=== PATIENT | female | born 1960 | race Caucasian/White ===

== ENCOUNTER 2020-04-07 17:24 | Observation (INO) | payer BC, SELFPAY ==
--- NOTE | ~2020-04-07 | XR_ITS ---
XR chest 1V portable DATE: 04/07/2020 18:09 INDICATION: Midsternal chest pain radiating to back. Chest tightness. TECHNIQUE: Portable upright AP chest on 04/07/2020 at 1802 hours COMPARISON: None FINDINGS: There is discoid atelectasis and/or scarring in both lower lung zones. There is focal infiltrate or atelectasis in the medial right lower lung. Otherwise no pulmonary infil trate or consolidation, pleural effusion or pulmonary vascular congestion or pneumothorax is noted ot herwise. Normal heart size. No hilar or mediastinal enlargement. Degenerative spurring of the thoracic spine consistent with diffuse idiopathic skeletal hyperostosis. Osteopenia. IMPRESSION: Medial right basilar infiltrate and/or atelectasis Bilateral lower lung discoid atelectasis or and/or scarring Reviewed, dictated and finalized at location A.
--- NOTE | 2020-04-07 17:28 | ECG_ITS ---
Measurements Intervals [place] Rate: 79 P: 65 CT: 176 QRS: 56 QRSD: 81 T: 66 QT: 358 QTc: 413 Interpretive Statements SINUS RHYTHM NORMAL ECG Electronically Signed On 04-09-2020 9:55:48 CDT by Kel Marie D.O.
[2020-04-07 17:33] VITALS: BP 183/87; PULSE 72; RESP 16; O2SAT 100
--- NOTE | 2020-04-07 17:53 | ED.CHESTPAIN ---
HPI - Chest Pain General Chief Complaint: Chest Pain Stated Complaint: Chest pain Time Seen by Provider: 04/07/20 17:45 Source: RN notes reviewed History of Present Illness HPI narrative: Patient presents emergency department from home for chest pain. Patient states she is been having intermittent chest pain over the past 1 year. She states that symptoms been progressively getting more severe and she was seen by her PCP and sent for a stress test yesterday. Patient states she has not the stress test at all in the hospital yesterday which did show some ischemia and she had scheduled an appointment with cardiology at [facility]. She states that this evening she was on the couch when she had an episode of pain across her bilateral anterior chest described as a pressure with some associated shortness of breath. Talk to her family at that time and came to emergency department for further evaluation. States that currently the pain is resolved. Denies any fevers or chills abdominal pain nausea vomiting or any other history. Denies any previous cardiac history Related Data Home Medications Medication Instructions Recorded Confirmed albuterol sulfate 2 inh INHALATION Q4H PRN 04/07/20 amlodipine 10 mg PO DAILY 04/07/20 budesonide-formoterol [Symbicort] 2 puff INHALATION Q12H 04/07/20 ipratropium-albuterol 3 ml INHALATION Q4H PRN 04/07/20 spironolactone 25 mg PO DAILY 04/07/20 Allergies Allergy/AdvReac Type Severity Reaction Status Date / Time No Known Allergies Allergy Unverified 12/18/16 10:13 Review of Systems Review of Systems: Narrative: Gen.: Denies fevers or chills ENT: Denies congestion Respiratory: Denies shortness of breath or cough CV: See HPI GI: Denies abdominal pain nausea, emesis or diarrhea Musculoskeletal: Denies back pain or muscle pain Neuro: Denies numbness, tingling, weakness or focal weakness Skin: Denies rash Except as documented, all other systems reviewed and negative FOR[facility]LY [facility] Past Medical History Medical History (Updated 04/07/20 @ 19:26 by Benoit Alvares DO) Asthma Hypertension Social History Social History (Updated 04/07/20 @ 18:34 by Benoit Alvares DO) Smoking status: Never smoker Exam Narrative: Exam Narrative: APPEARANCE: No acute distress, nontoxic, resting in bed EYES: EOMI HEENT: Normocephalic, atraumatic, OMM RESPIRATORY: No respiratory distress Clear to auscultation bilaterally with no rhonchi wheezing or rales. CARDIOVASCULAR: Regular rate and rhythm without murmurs rubs or gallops. ABDOMINAL: Soft, nontender, nondistended, no rebound or guarding MUSCULOSKELETAl: Moves all extremities. No clubbing, cyanosis or edema. NEURO: Awake and alert. Following commands, speech normal, no focal deficits SKIN:: Warm, dry. No rashes lesions or abrasions PSYCHIATRIC: Normal affect/mood, Course Course Emergency Course: Request from records sent all in the hospital for stress test The patient and family in for discussion with cardiology. Requesting [facility] at this time Discussed with Dr. Joshi new presentation work-up. Request admission to her service. Request patient receive single dose of Lovenox Discussed with patient and family results of workup and diagnosis. Discussed need for admission. Patient and family understand and agree to current treatment plan Vital Signs Vital signs: Vital Signs Pulse Rate 72 04/07/20 17:33 Respiratory Rate 16 04/07/20 17:33 Blood Pressure 183/87 H 04/07/20 17:33 Pulse Oximetry 100 04/07/20 17:33 Pulse Rate 72 04/07/20 17:33 Respiratory Rate 16 04/07/20 17:33 Blood Pressure 183/87 H 04/07/20 17:33 Pulse Oximetry 100 04/07/20 17:33 MDM - Chest Pain Lab Data Result diagrams: 04/07/20 17:58 04/07/20 17:58 Labs: Lab Results 04/07/20 04/07/20 04/07/20 Range/Units 17:58 17:58 17:58 WBC 8.0 (4.5-10.0) K/mm3 RBC 4.52 (4.2-5.4) M/mm3 Hgb 13.2
[2020-04-07 18:13] LABS: Basophils Absolute Auto 0.1 K/mm3 (0.0-0.1); Basophils Percent Auto 0.6 % (0.2-1.2); Eosinophils Absolute Auto 0.1 K/mm3 (0-0.3); Eosinophils Percent Auto 1.2 % (0-4.4); Hematocrit 39.9 % (37.0-47.0); Hemoglobin 13.2 g/dL (12.0-15.0); Immature Granulocyte Absolute 0.02 K/mm3 (0.00-0.031); Immature Granulocyte Percent A 0.2 % (0-0.5); Lymphocytes Percent Auto 21.2 % (18.3-44.2); Mean Corpuscular HGB Conc 33.1 g/dl (32-36); Mean Corpuscular Hemoglobin 29.2 pg (26-34); Mean Corpuscular Volume 88.3 fl (80-100); Mean Platelet Volume 10.3 fl (7.4-10.4); Monocytes Absolute Auto 0.7 K/mm3 (0.1-0.6); Monocytes Percent Auto 8.7 % (2.6-8.5); Neutrophils Absolute Auto 5.5 K/mm3 (1.3-6.7); Neutrophils Percent Auto 68.1 % (45.5-73.1); Platelet Count Result 253 k/mm3 (150-375); Red Blood Count 4.52 M/mm3 (4.2-5.4); Red Cell Distribution Width 13.5 % (11.5-14.5)
[2020-04-07 18:24] LABS: Prothrombin Time 13.3 Seconds (11.1-14.7)
[2020-04-07 18:25] LABS: Partial Thromboplastin Time 24.6 SECONDS (22.3-36.8)
[2020-04-07 18:30] LABS: Anion Gap 8 mmol/L (8-16); Blood Urea Nitrogen 18 mg/dL (7-17); Calcium 9.4 mg/dL (8.4-10.2); Carbon Dioxide 28 mmol/L (22-30); Chloride 100 mmol/L (98-107); Estimated CRCL calculation 97 ml/min; Estimated Glomerular Filt Rate > 60; Glucose 111 mg/dL (65-105); Potassium 4.3 mmol/L (3.4-5.0); Sodium 136 mmol/L (137-145)
[2020-04-07 18:41] LABS: Troponin I < 0.012 ng/mL (0.000-0.034)
[2020-04-07] MEDS: ASPIRIN 81 MG CHEWABLE TABLET 324 MG PO (19:01)
[2020-04-07] MEDS: ENOXAPARIN 120 MG/0.8 ML SYRINGE 118 MG SUB-Q (19:36)
[2020-04-07 20:30] VITALS: BP 145/92; PULSE 61; RESP 18; TEMP 35.9; O2SAT 100; BMI 40.9
[2020-04-07 20:34] VITALS: BP 138/95; PULSE 89; RESP 16; TEMP 36.7; O2SAT 96
[2020-04-07 20:47] VITALS: BMI 41.4
--- NOTE | 2020-04-07 20:50 | ADMGEN ---
This patient, Connie Harden, was admitted to IMU Room 210-01. Patient/family oriented to hospital policies and general routines including ID bracelet, bed and alarms, visiting hours, pain management, procedures, bathroom and other care routines, personal items, smoking policy, room service/diet, and visiting hours. Valuables list has been completed. Information on how to activate the Rapid Response Team has been discussed. Patient/Family are encouraged to report perceived risks to care and to ask questions if they do not understand what they are told or what they should do.
[2020-04-07 22:00] VITALS: PULSE 73
[2020-04-07 22:04] LABS: Troponin I < 0.012 ng/mL (0.000-0.034)
[2020-04-08] VITALS (18 sets, daily range): BP systolic 109–135; BP diastolic 54–88; PULSE 56–83; RESP 12–22; TEMP 35.6–36.7; O2SAT 93–100
--- NOTE | 2020-04-08 | ECHO_ITS ---
Patient Info Name: Connie Harden Age: 59 years : 1960 Gender: Female Ht: 66 in Wt: 260 lbs BSA: 2.40 m2 HR: 65 bpm BP: 119 / 65 mmHg Heart Rhythm: Sinus Rhythm Technical Quality: Fair Exam Date: 04/08/2020 2:25 PM Exam Location: [facility] Patient Status: Outpatient Admit Date: 04/07/2020 Staff Ordering Physician: Koffi Baig MD Forex Trader: Cornelio Baxter, BERNARDINO, RT Attending Provider: Nadege Joshi MD Referring Physician: Safia HWANG; Exam Type: CA echo dop color flow w con Study Info Indications R07.9 - Chest pain, unspecified Complete two-dimensional, color flow and Doppler transthoracic echocardiogram is performed with contrast to opacify the left ventricle and to improve the deliniation of the left ventricle endocardial borders. Summary 1. Left ventricular chamber dimension is normal. 2. Left ventricular systolic function is normal, estimated at 65-70%. 3. There is mildly increased left ventricular wall thickness. 4. Left ventricular septal wall motion is normal. 5. The left ventricular diastolic function is normal. 6. Left atrial chamber dimension is mildly enlarged. 7. There is mild mitral valve regurgitation. 8. There is mild tricuspid valve regurgitation. Left Ventricle Left ventricular chamber dimension is normal. Left ventricular systolic function is normal, estimated at 65-70%. There is mildly increased left ventricular wall thickness. Left ventricular septal wall motion is normal. The left ventricular diastolic function is normal. Right Ventricle Right ventricular chamber dimension is normal. Right ventricular systolic function is normal. Left Atria Left atrial chamber dimension is mildly enlarged. Right Atria Right atrial chamber dimension is normal. Atrial Septum Intact interatrial septum visualized by color flow imaging. Aortic Valve The aortic valve is probable trileaflet. There is mild aortic valve sclerosis. There is no aortic valve stenosis. There is trace aortic valve regurgitation. Pulmonic Valve The pulmonic valve is not well visualized. There is no pulmonic valve stenosis. There is trace pulmonic regurgitation. Mitral Valve The mitral valve has normal leaflets. There is no mitral valve stenosis. There is mild mitral valve regurgitation. Tricuspid Valve The tricuspid valve leaflets are normal. There is no significant tricuspid valve stenosis. There is mild tricuspid valve regurgitation. No pulmonary hypertension, estimated pulmonary arterial systolic pressure is 33 mmHg. Pericardium/Pleural The pericardium appears normal. There is no pericardial effusion. Inferior Vena Cava Normal inferior vena cava with >50% collapse upon inspiration consistent with normal right atrial pressure, 5 mmHg. Aorta The aortic root size at the sinus of Valsalva is normal. Left Ventricular Outflow Tract Name Value Normal LVOT Doppler LVOT Peak Gradient 3 mmHg LVOT Mean Gradient 1 mmHg LVOT VTI 18.88 cm LVOT VTI/AV VTI Ratio 0.60 Mitral Valve
[2020-04-08 00:11] LABS: Troponin I < 0.012 ng/mL (0.000-0.034)
[2020-04-08 05:26] LABS: Basophils Absolute Auto 0.1 K/mm3 (0.0-0.1); Eosinophils Absolute Auto 0.1 K/mm3 (0-0.3); Eosinophils Percent Auto 1.8 % (0-4.4); Hematocrit 37.9 % (37.0-47.0); Hemoglobin 12.3 g/dL (12.0-15.0); Immature Granulocyte Absolute 0.01 K/mm3 (0.00-0.031); Immature Granulocyte Percent A 0.2 % (0-0.5); Lymphocytes Absolute Auto 2.06 K/mm3 (0.9-3.2); Lymphocytes Percent Auto 40.5 % (18.3-44.2); Mean Corpuscular HGB Conc 32.5 g/dl (32-36); Mean Corpuscular Hemoglobin 28.8 pg (26-34); Mean Corpuscular Volume 88.8 fl (80-100); Mean Platelet Volume 10.6 fl (7.4-10.4); Monocytes Absolute Auto 0.3 K/mm3 (0.1-0.6); Monocytes Percent Auto 5.7 % (2.6-8.5); Neutrophils Absolute Auto 2.6 K/mm3 (1.3-6.7); Neutrophils Percent Auto 50.8 % (45.5-73.1); Platelet Count Result 243 k/mm3 (150-375); Red Blood Count 4.27 M/mm3 (4.2-5.4); Red Cell Distribution Width 13.3 % (11.5-14.5); White Blood Count 5.1 K/mm3 (4.5-10.0)
[2020-04-08 05:38] LABS: Anion Gap 6 mmol/L (8-16); Blood Urea Nitrogen 15 mg/dL (7-17); Calcium 8.9 mg/dL (8.4-10.2); Carbon Dioxide 30 mmol/L (22-30); Chloride 101 mmol/L (98-107); Estimated CRCL calculation 98 ml/min; Estimated Glomerular Filt Rate > 60; Glucose 97 mg/dL (65-105); Potassium 3.9 mmol/L (3.4-5.0); Sodium 137 mmol/L (137-145)
--- NOTE | 2020-04-08 09:33 | PM.IMHP ---
H&P: HPI History of Present Illness Date/Time: 04/08/20 09:33 Chief complaint: Unstable angina Narrative: Date of service 04/08/2020 Connie Harden is a 59 year old female has been having chest pain for years. She describes as a squeezing and tightness that used to occur a couple times per year but recently has become more often, more severe and last longer. And now occurs every couple of days to every couple of weeks. It usually is nonexertional. It will last for minutes to hours. Sometimes she takes aspirin or Advil and her symptoms go away. She does have some occasional palpitations but not necessarily associated at the same time period her discomfort does not radiate into her arm back neck or jaw. She does not become short of breath nausea or diaphoretic. Yesterday she had a dagger like sensation that went through the center of her chest and into her back. This was different than her previous chest pain that she a 4 mention described. She has told her primary care physician Dr. Bowens this in the past and has had EKGs performed which have been normal. Recently she described chest pain again and so a stress test was performed on 04/06/2020 at [facility] which was abnormal for a 1.[address] segment depressions inferiorly. There was no exercise-induced chest pain however. Blood pressure is noted to be significantly elevated at peak exercise at 231/85. Regardless, given her chest pain yesterday and with the knowledge of an abnormal stress test, she came to hospital yesterday for further workup and evaluation. Patient has had negative troponins x3 and her EKG is completely normal. She feels okay at this point but is quite anxious. She otherwise denies any shortness of breath, syncope, presyncope, paroxysmal nocturnal dyspnea, orthopnea, edema Review of Systems Review of Systems: All systems reviewed & are unremarkable except as noted in HPI and below Constitutional: Constitutional: Denies weakness Eyes: Eyes: Denies blurry vision ENT: Denies epistaxis Cardiovascular: Cardiovascular: Reports chest pain Respiratory: Respiratory: Reports dyspnea Gastrointestinal: Gastrointestinal: Denies abdominal pain Genitourinary: Genitourinary: Denies flank pain Musculoskeletal: Musculoskeletal: Denies neck pain Integumentary/Breasts: Skin/Breast: Denies dry skin Neurologic: Denies headache(s) Psychiatric: Psychiatric: Reports anxiety Endocrine: Endocrine: Denies flushing Hematologic/Lymphatic: Hematologic/Lymphatic: Denies easy bleeding Allergic/Immunologic: Allergic/Immunologic: Denies lip swelling PMFSH Past Medical History Medical History Asthma Hypertension Family History Family History Father Diabetes mellitus COPD (chronic obstructive pulmonary disease) Grandparent Cerebrovascular accident Mother Pulmonary emboli Social History Social History Smoking status: Never smoker Second hand tobacco smoke exposure: Yes Alcohol intake: never Substance use: never Gender identity (if verbalized by the patient): Female Spiritual care concerns: No Meds Home Medications and Allergies Home Medications Medication Instructions Recorded Confirmed Type albuterol sulfate 2 inh INHALATION Q4H PRN 04/07/20 04/07/20 History amlodipine 10 mg PO DAILY 04/07/20 04/07/20 History budesonide-formoterol [Symbicort] 2 puff INHALATION Q12H 04/07/20 04/07/20 History ipratropium-albuterol 3 ml INHALATION Q4H PRN 04/07/20 04/07/20 History spironolactone 25 mg PO DAILY 04/07/20 04/07/20 History Allergies Allergy/AdvReac Type Severity Reaction Status Date / Time No Known Allergies Allergy Unverified 12/18/16 10:13 Vital Signs Vital Signs - 24 hr 04/07/20 17:33 04/07/20 20:30 04/07/20 20:34 Temperature
[2020-04-08] MEDS: amLODIPine BESYLATE 5 MG TABLET 10 MG PO (10:38)
[2020-04-08] MEDS: ASPIRIN 81 MG ENTERIC TABLET PO (10:39)
--- NOTE | 2020-04-08 10:45 | WPDMODSED ---
Moderate Sedation Note-Pt Data Patient Data Allergies Allergy/AdvReac Type Severity Reaction Status Date / Time No Known Allergies Allergy Unverified 12/18/16 10:13 Home Medications Medication Instructions Recorded Confirmed Type albuterol sulfate 2 inh INHALATION Q4H PRN 04/07/20 04/07/20 History amlodipine 10 mg PO DAILY 04/07/20 04/07/20 History budesonide-formoterol [Symbicort] 2 puff INHALATION Q12H 04/07/20 04/07/20 History ipratropium-albuterol 3 ml INHALATION Q4H PRN 04/07/20 04/07/20 History spironolactone 25 mg PO DAILY 04/07/20 04/07/20 History Current Medications: Active Medications Amlodipine Besylate (Norvasc) 10 mg PO [facility] Last Admin: 04/08/20 10:38 Dose: 10 mg Documented by: Aspirin (Aspirin Ec) 81 mg PO [facility] Last Admin: 04/08/20 10:39 Dose: 81 mg Documented by: Sedation/Anesthesia: No previous sedation/anesthesia problems (including family history). [facility] Past Medical History Medical History (Updated 04/08/20 @ 09:39 by Koffi Baig MD) Asthma Hypertension Morbid obesity Family History Family History Father Diabetes mellitus COPD (chronic obstructive pulmonary disease) Grandparent Cerebrovascular accident Mother Pulmonary emboli Social History Social History Smoking status: Never smoker Second hand tobacco smoke exposure: Yes Alcohol intake: never Substance use: never Gender identity (if verbalized by the patient): Female Spiritual care concerns: No Mod Sed Physical Exam Physical Exam Pre Procedural Exam: Normal: Appearance, Eyes, Ears, Nose, Neck, Throat, Airway, Lungs, Heart Size, Heart Rate, Heart Rhythm, Neuro Exam, Abdomen, Liver, Kidneys, Spleen, Breasts, Genitalia, Extremities and Skin Hours since solid foods: 8 Hours since liquid intake: 8 Internal Medicine - PN: Obj Da Vital Signs Vital Signs: Vital Signs - 24 hr 04/07/20 17:33 04/07/20 20:30 04/07/20 20:34 Temperature 35.9 C L 36.7 C Pulse Rate 72 61 89 Respiratory Rate 16 18 16 Blood Pressure 183/87 H 145/92 H 138/95 H Pulse Oximetry 100 100 96 04/07/20 22:00 04/08/20 00:00 04/08/20 00:13 Temperature 35.7 C L Pulse Rate 73 61 60 Respiratory Rate 20 Blood Pressure 123/63 Pulse Oximetry 96 04/08/20 02:00 04/08/20 04:00 04/08/20 04:20 Temperature 35.6 C L Pulse Rate 56 L 64 67 Respiratory Rate 20 Blood Pressure 135/75 Pulse Oximetry 99 04/08/20 06:00 04/08/20 08:00 04/08/20 10:00 Temperature 36.2 C L Pulse Rate 59 L 66 64 Respiratory Rate 12 Blood Pressure 119/65 Pulse Oximetry 98 Intake/Output Intake/Output: Intake & Output 04/05/20 04/06/20 04/07/20 04/08/20 23:59 23:59 23:59 23:59 Intake Total 240 800 Output Total 450 Balance 240 350 Meds/Results Medications: Active Medications Generic Name Dose Route Start Last Admin Trade Name Freq PRN Reason Stop Dose Admin Amlodipine Besylate 10 mg 04/08/20 09:45 04/08/20 10:38 Norvasc PO 10 mg QAM ALEX Administration Aspirin 81 mg 04/08/20 09:45 04/08/20 10:39 Aspirin Ec PO 81 mg QAM ALEX Administration Radiology Results: ITS Impressions Chest X-Ray 04/07/20 18:14 IMPRESSION: Medial right basilar infiltrate and/or atelectasis Bilateral lower lung discoid atelectasis or and/or scarring Labs CBC & Chem 7: 04/08/20 04:43 04/08/20 04:43 Labs: Laboratory Results - last 24 hr 04/07/20 04/07/20 04/07/20 17:58 17:58 17:58 WBC 8.0 RBC 4.52 Hgb 13.2 Hct 39.9 MCV 88.3 MCH 29.2 MCHC 33.1 RDW 13.5 Plt Count 253 MPV 10.3 Immature Gran % (Auto) 0.2 Neut % (Auto) 68.1 Lymph % (Auto) 21.2 Louisa % (Auto) 8.7 H Eos % (Auto) 1.2 Baso % (Auto) 0.6 Lymph # (Auto) 1.70 Louisa # (Auto) 0.7 H Eos # (Auto) 0.1 Baso # (Auto) 0.1
--- NOTE | 2020-04-08 10:46 | WPDHPUPDATE1 ---
History and Physical Update Update Date/Time: 04/08/20 10:46 History and Physical has been reviewed, including an updated exam of the patient. There are NO changes in the patient's condition. Risks, benefits, and alternatives have been discussed and questions answered. Patient agrees to proceed with procedure.
--- NOTE | 2020-04-08 10:47 | P.PCNCC_ITS ---
Cardiac Cath Procedure Note Date of procedure:: 04/08/20 Performing physician:: Klarissa Berman MD date of service 04/08/2020. Indication:: chest pain Brief clinical history:: 59 female past history of hypertension who has been experiencing chest pain. Stress test recently EKG portion shows ST depression inferior laterally. The blood pressure was elevated at peak exercise 230/120. She comes back to the hospital with chest pain and therefore we will cath the stated to exclude CAD. Procedure Procedure performed:: 1-Moderate sedation that started at 11: 15 am and ended at 11:35 am with total duration of 20 minutes using mg of Versed and mg fentanyl. The registered nurse was Bruce Tay. 2-Selective left and right coronary angiogram. 3-Left heart catheterization with measurement of LVEDP and measurement of gradient across aortic valve. 4- LV angiogram. 4-Right common femoral arterial angiogram. 5-Deployment of 6 Armenian Angio-Seal. Sedation/Medication given:: Moderate sedation. Access site:: Right common femoral artery. Estimated blood loss:: 10cc Procedure note:: After informed consent patient was brought in to prestressed concrete laborer with the was draped and prepped in usual manner. Moderate sedation was given and the right groin was infiltrated using 1% lidocaine. Five Armenian sheath was obtained using micropuncture needle and the modified Seldinger technique. Selective left coronary angiogram was done using JL4 catheter with the tip of the catheter placed in the left main coronary artery. Selective right coronary angiogram was done using JR4 catheter with the tip of the catheter placed to the right coronary artery. After that 5 Armenian pigtail catheter was advanced across the aortic valve into the left ventricle with measurement of LVEDP and measurement of gradient across aortic valve. Right common femoral arterial angiogram was done. Findings:: 1- left coronary artery is a large artery that divides into large LAD, large circumflex artery. Left main is free of disease. 2- left anterior descending artery is a large artery that runs and wraps around the apex. That is free of disease. The mid segment large diagonal branch that is free of disease. 3- left circumflex artery is a large artery Free of disease. After takes off from the left main gives rise to a medium size OM 1 branch that is free of disease and distally om 2 branch that is free of disease 4- right coronary artery is large artery and free of disease. It is dominant. 5- LVEDP was 10 mmhg and no gradient across aortic valve. 6- LV angiogram shows normal LV systolic function, estimated ejection fraction 65%, normal ascending aorta. 6- opening arterial pressure was 121/80and closing pressure was 110/70. 7- right femoral artery angiogram shows no significant disease in the right common femoral artery. Conclusion:: No CAD. false-positive stress test. Assessment and Plan Additional Plan continue aggressive risk factor modification for CAD
[2020-04-08 12:19] LABS: Cholesterol 146 mg/dL (0-200); HDL Direct 36 mg/dL; Triglycerides 113 mg/dL (<150)
--- NOTE | 2020-04-08 12:27 | SUR.PHASEII ---
Patient arrived into Phase 2 in [facility] room 4 at 1145. VSS. Groin soft and non tender, dressing clean, dry, and intact. Patient updated on plan of care and verbalizes understanding. Will continue to monitor.
[2020-04-08 12:30] LABS: LDL Cholesterol Direct 95 mg/dL
[2020-04-08] MEDS: SODIUM CHLORIDE 0.9% IV 1,000 ML 125 ML IV CONT (13:07)
[2020-04-08] MEDS: PERFLUTREN LIPID MICROSPHERES 1.5 ML VIAL DILUTED TO 10 ML TOTAL VOLUME IV PUSH (15:00)
--- NOTE | 2020-04-09 10:55 | PM.DS ---
DS: Admitting Diagnosis Admitting Diagnosis Admitting Diagnosis: Unstable angina DS: Discharge Diagnosis Discharge Diagnosis (1) Abnormal stress test: Code(s): R94.39 - Abnormal result of other cardiovascular function study Status: Acute Assessment and Plan: Patient comes in with chest pain and underwent stress test that was abnormal stress test. However cardiac catheterization did not show significant obstructive CAD DS: Summary Time Spent with Patient Time attestation: Total time spent providing and/or coordinating discharge services:25 Exam Const: General: cooperative, comfortable, no acute distress, alert and awake Nutritional Appearance: well nourished Orientation/consciousness: patient oriented x3 HENMT: Head: normal to inspection, normocephalic and atraumatic Ears: hearing grossly normal bilaterally General nose exam: Normal external nose present, Normal nares present and no nasal discharge noted Face and sinus: normal facial exam and no erythema Mouth: No drooling and No restricted motion Throat: uvula midline Eyes: General: appearance normal, both eyes and all related structures Alignment and Position: position normal Conjunctivae: conjunctivae normal Sclera: sclerae normal Direct Ophthalmoscopy: No photophobia Neck: Neck: normal visual inspection and no JVD Thyroid: thyroid normal Carotids: no bruits Lymphatic: lymphedema not noted Chest: Chest palpation & inspection: normal inspection of the chest and no tenderness Resp: Effort & Inspection: normal respiratory effort and no nasal flaring Auscultation: clear to auscultation bilaterally, no crackles, no rales and no wheezes Cardio: Jugular venous distension: no JVD Rate: regular rate Rhythm: regular rhythm Heart sounds: S1 normal heart sound present, S2 normal heart sound present, no gallops, no murmurs and no rubs GI: Inspection: non-distended GI Palp: No abdominal tenderness and No Soft to palpation Auscultation: normal bowel sounds Rectal Exam: deferred : General: No no CVA tenderness Back/Spine/Pelvis: Back: No no CVA tenderness Cervical Spine: cervical ROM normal Skin: General skin exam: normal color and rashes and/or lesions noted Neuro: General: patient oriented x3 Cranial nerves: No CN's II-XII intact bilaterally Speech: normal speech Motor exam (neuro): no tremors Extrem: General: normal to inspection and pedal edema present Psych: Appearance: grossly normal and well kempt Speech and movement: Normal speech and movement present Affect: normal affect Discharge Plan Discharge Attending physician on discharge: Koffi Baig Consulting providers: Klarissa Berman ; Koffi Baig ; Kel Marie ; Joe Loaiza Discharging Clinician: Koffi Baig Anticipated Discharge Date/Time: 04/08/20 17:00 Patient Disposition: Home, Self-Care Activity: other - see discharge instructions Diet: heart healthy Wound Care Instructions: other - see discharge instructions Discharge Instructions: ACTIVITY: No driving for 24 hours. No lifting, pushing or pulling more than 10 pounds for 1 week. No strenuous exercise or activity for 1 week. May shower but no tub baths or swimming pool for 1 week. Avoid commercial hot tubs. They are too hot. May return to work on Monday, April 13, 2020 maintaining the above lifting restrictions until April FOLLOW-UP: Follow-up with Primary Care Provider 1-2 weeks. Take a copy of the cardiac catheterization report to your Primary Care Provider. WOUND CARE: May remove gauze dressing tomorrow and place Band aid over site. Remove Band aid on Sunday and leave site open to air. Observe for redness,swelling, drainage or bleeding. Wash gently and pat dry when showering. Stand Alone Forms: General Discharge Information, Work/School Release IP Follow-up/Referrals: Kwan,Donald Amador MD [Primary Ca
== END 2020-04-08 17:00 | disposition home or self-care (01) ==
LOC: ANHED 18:35 → ANHIMU 19:54
PROVIDERS: Internal Medicine Cardiovascular Disease; Admitting Provider Internal Medicine Cardiovascular Disease; Emergency Provider Emergency Medicine; PCP Internal Medicine; Visit Provider Internal Medicine Cardiovascular Disease
PROC: 4A023N7 Measurement of Cardiac Sampling and Pressure, Left Heart, Percutaneous Approach (ICD-10-PCS; CPT 93452; principal; 2020-04-08 11:30)
DX: R07.89 Other chest pain (principal); I10 Essential (primary) hypertension; J45.909 Unspecified asthma, uncomplicated; R94.39 Abnormal result of other cardiovascular function study; E66.01 Morbid (severe) obesity due to excess calories; Z68.41 Body mass index [BMI] 40.0-44.9, adult
CPT/HCPCS: 36415; 71045; 80048; 80061; 84484; 85025; 85610; 85730; 93005; 93458; 96361; 96372; 96374; 99285; A9270; C1760; C1887; C1894; C8929; G0269; G0378; J1644; J1650; J2250; J3010; J7030; J7040; Q9957

== ENCOUNTER 2023-02-05 12:49 | Outpatient (CLI) | payer BC, SELFPAY ==
[2023-02-05 13:47] LABS: Anion Gap 6 mmol/L (8-16); Blood Urea Nitrogen 15 mg/dL (7-17); Calcium 9.4 mg/dL (8.4-10.2); Carbon Dioxide 31 mmol/L (22-30); Chloride 101 mmol/L (98-107); Estimated Glomerular Filt Rate > 60; Glucose 102 mg/dL (65-110); Potassium 4.1 mmol/L (3.4-5.0); Sodium 138 mmol/L (137-145)
== END 2023-02-05 12:50 | disposition home or self-care (01) ==
PROVIDERS: Anesthesiology; PCP Internal Medicine; Visit Provider Podiatrist Foot & Ankle Surgery
DX: Z79.899 Other long term (current) drug therapy (principal); Z01.818 Encounter for other preprocedural examination
CPT/HCPCS: 36415; 80048

== ENCOUNTER 2023-02-09 01:04 | Day surgery (SDC) | payer BC, SELFPAY ==
[2023-02-01 12:00] VITALS: BMI 44.8
--- NOTE | 2023-02-01 12:05 | PC.NURSE ---
Report to the Outpatient Waiting Room, entrance under the green pavilion located off [facility], at time 9:00 on date 02/09/23. Planned Procedure Time: 11:00. Time changes happen often and if your time is changed the preop area will call you the afternoon before. - You and your visitor will be asked to self-screen and do not enter if you have any COVID symptoms. - A mask is optional within the hospital at this time. Patients may have clear liquids (water, carbonated beverages, clear teas, apple juice) until 3 hours prior to surgery (8:00) with a maximum of 20 ounces. - No food from midnight until time of surgery Take the following medications with a SIP of water the morning of surgery: INHALERS, AMLODIPINE DO NOT STOP ANY OF YOUR OTHER PRESCRIPTION MEDICATIONS PRIOR TO SURGERY ?EXCEPT THE FOLLOWING Medications to discontinue per physician: N/A Date to take last dose: N/A Please no make-up, nail turkish, hairspray, perfume, deodorant, or body powder the day of surgery. No jewelry (including any body piercings) or valuables the day of surgery, leave them at home. Please take a shower or bath the night before, or the morning of, surgery with an antibacterial soap. Wear comfortable, loose fitting clothing. - Jewelry must be removed prior to entering the operating room. Rings and piercings that are not removed may be cut off. - The hospital will not accept responsibility for valuables. - Please leave all valuables, including medications, at home the day of surgery. If you are going home after surgery, a licensed concrete mixing truck driver must drive you home. - NO public transportation without another adult if you receive anesthesia. - We recommend that an adult stay with you for 24 hours following discharge. - We also recommend that you do not drive, make important decision, drink alcoholic beverages, or take any drugs that were not prescribed by your health care provider for at least 24 hours after your discharge time. Follow any additional instructions given to you from your surgeon. If you or anyone in your household have experienced Covid symptoms in the past week, please notify your surgeon or the nurse liaison at the phone number below for possible testing. Telephone instructions given to DELMY WHEATLEY and asked if any additional questions and then verbalized understanding. Patient advised to call surgeon office or pre surgery nurse liaison [phone] if any additional questions.
--- NOTE | 2023-02-08 12:55 | P.PNAN_ITS ---
Anes - Initial Pre Proc Eval Procedure: Operation Date: 02/09/23 11:00 Proposed Procedures p Exostectomy Left Lateral Mid Foot - Raymundo Zhu JR, MD Date/Time: 02/08/23 12:55 Surgeon: Raymundo Zhu JR, MD Pre Op Diagnosis: Exostosis Left Foot Patient Data Age: 62 Gender: F Height: 1.68 m Weight: 126 kg Allergies Allergy/AdvReac Type Severity Reaction Status Date / Time No Known Allergies Allergy Verified 02/09/23 09:14 Home Medications Medication Instructions Recorded Confirmed Type albuterol sulfate 90 mcg/actuation 2 inh inhalation Q4H PRN Shortness 04/07/20 02/09/23 History breath activated powder inhaler Of Breath amlodipine 10 mg tablet 10 mg PO DAILY 04/07/20 02/09/23 History budesonide-formoterol HFA 160 2 puff inhalation Q12H 04/07/20 02/09/23 History mcg-4.5 mcg/actuation aerosol inhaler (Symbicort) ipratropium 0.5 mg-albuterol 3 mg 3 ml inhalation Q4H PRN Shortness 04/07/20 02/01/23 History (2.5 mg base)/3 mL nebulization Of Breath soln spironolactone 25 mg tablet 25 mg PO DAILY 04/07/20 02/09/23 History Patient hx anesthesia problems: none Family hx anesthesia problems: none Results Review: All pre-operative results and documents have been reviewed as part of the pre- operative evaluation. FOR[facility]LY [facility] Past Medical History Medical History (Updated 04/27/20 @ 16:09 by Kira Will) Asthma Hypertension Morbid obesity Family History Family History Father Diabetes mellitus COPD (chronic obstructive pulmonary disease) Grandparent Cerebrovascular accident Mother Pulmonary emboli Social History Social History (Updated 04/27/20 @ 16:11 by Bela Roman RN) Smoking status: Never smoker Second hand tobacco smoke exposure: Yes Alcohol intake: current Alcohol use details: RARE Substance use: never Substance use type: does not use Living arrangements: with family Gender identity (if verbalized by the patient): Female Spiritual care concerns: No Anes - Eval Final PreProcedure Day of Procedure 02/08/23 12:55 Patient weight: morbidly obese Heart: regular rate and rhythm Lungs: clear to auscultation and normal air movement Airway: Mallampati scale class II Neurological: alert and oriented Last oral intake: >/= 8 hours ASA classification: III Emergent: no Anesthetic plan: proceed Anesthesia type and monitoring: general GIVS and LMA Results Review: All pre-operative results and documents have been reviewed as part of the pre- operative evaluation. Informed Consent: The patient's anesthetic plan and its attendant risks and benefits were discussed with the patient/family/POA. Questions were solicited and answers provided to the satisfaction of the patient/family/POA.
--- NOTE | ~2023-02-09 | XR_ITS ---
EXAMINATION: XR surgery orthopedic DATE: 02/09/2023 12:04 INDICATION: Left foot surgery TECHNIQUE: 2 fluoroscopic images of the left fore and midfoot were obtained during procedure performe d by Dr. Zhu. Radiologist was not present for the imaging or procedure. The amount of fluoroscop y time used during this procedure was 0.1 minutes. COMPARISON: None. FINDINGS: Alignment of the visualized bones appears normal. No fracture. Dorsal osteophytes at the tarsal metat arsal joints. IMPRESSION: 1. Possible utilized during orthopedic procedure. See procedure note for further detail. Reviewed, dictated and finalized at location B. IMPRESSION: 1. Possible utilized during orthopedic procedure. See procedure note for furthe r detail.
--- NOTE | 2023-02-09 07:19 | WPDHPUPDATE1 ---
History and Physical Update Update Date/Time: 02/09/23 07:19 History and Physical has been reviewed, including an updated exam of the patient. There are NO changes in the patient's condition. Risks, benefits, and alternatives have been discussed and questions answered. Patient agrees to proceed with procedure.
[2023-02-09 09:08] VITALS: BP 127/76; PULSE 80; RESP 20; TEMP 36.1; O2SAT 99
[2023-02-09] MEDS: LACTATED RINGERS 1,000 ML 30 ML IV CONT (09:50)
[2023-02-09] MEDS: ceFAZolin 3 GM/D5W 100 ML 100 ML IVPB (11:32)
[2023-02-09] MEDS: LIDOCAINE HCL 2% LOCAL INJ 20 ML VIAL 10 ML INFILTRATE (11:51)
[2023-02-09 12:07] VITALS: BP 114/62; PULSE 84; RESP 12; O2SAT 96
--- NOTE | 2023-02-09 12:31 | W.PM.PROC2 ---
Procedure Note - Detailed Date of Procedure 02/09/23 Pre-op Diagnosis Exostosis Left Foot Post-op Diagnosis Same Procedure Performed Exostectomy left lateral midfoot Surgeon Raymundo Zhu JR, DPM Anesthesia MAC and Local Indications Painful bone spur left foot Description of Procedure PROCEDURE IN DETAIL: Under mild sedation, the patient was brought into the operating room, placed on the operating table in slight lateral position with a martinez bag. A pneumatic ankle tourniquet was placed about the patient's ankle. Following IV sedation a local anesthetic block was obtained about the foot and ankle utilizing 20 cc of a 1:1 of 2% Lidocaine plain and 0.5% Marcaine plain. The foot was then scrubbed, prepped, and draped in the usual aseptic manner. An Esmarch bandage was then used to exsanguinate the patient's foot and the pneumatic ankle tourniquet was then inflated. Surgery began in the following manner: Attention was directed to the lateral aspect of the midfoot overlying the fourth and fifth metatarsal cuboid joint. The incision was made starting at the cuboid and extending to the base of the 4th and 5th metatarsals . The incision was continued deep down through the subcutaneous tissues using sharp and blunt dissection. All bleeders were cauterized as necessary. At this point, the dissection was continued down to the periosteal layer where the periosteum was reflected medially and laterally exposing a large osteophyte. I used an osteotome and mallet to resect the large osteophyte and used a guardado rasp to smooth any rough edges., I did protect the neurovascular structures. The operative site was flushed with copious amount of sterile saline. Finally, the subcutaneous structures were reapproximated with 3-0 Vicryl. Next, the skin was reapproximated and coapted utilizing 4-0 Monocryl in running subcuticular suture fashion technique. Upon completion of the procedure, the incision was dressed with Steri-Strips, Adaptic, 4x4s, Kerlix, and Coban. The pneumatic ankle tourniquet was then deflated and a prompt hyperemic response was noted to all digits of the foot. A CAM Walker boot was then applied to the affected lower extremity. It is important to note that Dr. Zhu was present throughout the procedure. The patient did very well with the procedure and the anesthesia. The patient was transferred to the recovery room with vital signs stable and vascular status intact to all toes of the foot. Following a period of postoperative monitoring, the patient will be discharged home on the following written and oral postoperative instructions: 1. Keep the dressing clean, dry, and intact. 2. The patient to be protected weight bearing with a surgical shoe. 3. The patient should ice and elevate the affected foot when at rest. 4. The patient should contact Dr. Zhu for all postop care and if any problems should arise. The patient will follow up in one week for the post op visit. 5. Prescriptions were written for Percocet 5/325, dispensed 40 to be taken 1 p.o. q.4-6 hours as needed for severe pain. Furthermore, the patient should take Aspirin 325 once daily for two weeks to prevent DVT. Estimated Blood Loss 1 Drains No Packing No Pathology None sent Complications No immediate complications Condition Stable Disposition Same day
[2023-02-09 12:35] VITALS: BP 111/52; PULSE 77; RESP 16; O2SAT 96
[2023-02-09 13:00] VITALS: BP 136/65; PULSE 69; RESP 16
== END 2023-02-09 13:15 | disposition home or self-care (01) ==
PROVIDERS: PCP Internal Medicine; Visit Provider Podiatrist Foot & Ankle Surgery
PROC: (CPT 28122; principal; 2023-02-09 11:00)
DX: M25.775 Osteophyte, left foot (principal); J45.909 Unspecified asthma, uncomplicated; I10 Essential (primary) hypertension; E66.01 Morbid (severe) obesity due to excess calories; Z68.41 Body mass index [BMI] 40.0-44.9, adult; Z79.51 Long term (current) use of inhaled steroids
CPT/HCPCS: 28122; 99199; J0690; J1100; J2250; J2405; J2704; J3010; J7120

== ENCOUNTER 2025-03-10 17:36 | Emergency (ER) | payer BC, SELFPAY ==
--- NOTE | ~2025-03-10 | XR_ITS ---
HISTORY: pain, twist injury COMPARISON: None TECHNIQUE: 3 views of the right foot were performed FINDINGS: Periarticular osteopenia is identified. Hallux valgus deformity is noted. Significant degenerative disease is present, with osteophyte formation and joint space narrowing, spe cifically within the midfoot. No acute fracture or dislocation is appreciated. The base of the fifth metatarsal is intact. No calcaneal spur is noted. No significant soft tissue swelling is present. IMPRESSION: Significant degenerative disease without acute fracture deformity identified. Reviewed, dictated and finalized at location A.
--- OUTSIDE RECORDS SUMMARY | 2025-03-10 17:40 | XMS_ITS | Referral Summary ---
Author Organization [facility] [address] Address [address] [place] [address] Phone Care Team Providers Care Spudder Name Role Phone Donald Bowens MD Primary Care Provider [phone] Cornelio Loera MD Unavailable [phone] Encounters Date Type Department Care Team Description 03/06/2025 11:00 AM CDT Office Visit [facility] [address] [place] [phone] Mary Carmen Alston MD SANDRA (obstructive sleep apnea) (Primary Dx); Hypersomnia with sleep apnea; Morbid obesity with BMI of 40.0-44.9, adult ([facility]) 02/12/2025 Telephone [facility] [address] [place] [phone] Donald Bowens MD 01/23/2025 Telephone [facility] [address] [place] [phone] Donald Bowens MD 01/14/2025 Results Follow-Up [facility] [address] [place] [phone] Donald Bowens MD Hemoglobin A1c 01/13/2025 11:00 AM CDT Lab [facility] [address] [place] [address] Abnormal glucose 01/13/2025 10:30 AM CDT Ancillary Procedure [facility] [address] [place] [address] 01/13/2025 9:45 AM CDT Office Visit [facility] [address] [place] [address] Donald Bowens MD Morbid obesity with BMI of 40.0-44.9, adult (HCC) (Primary Dx); Encounter for screening mammogram for malignant neoplasm of breast; Primary hypertension; Sleep disturbance; Abnormal glucose from Last 3 Months Allergies Active Allergy Reactions Criticality Noted Date Comments Mirabegron Headache Medium 04/28/2021 Medications albuterol 2.5 mg /3 mL (0.083 %) nebulizer solution Take 3 mL (2.5 mg total) by nebulization 4 (four) times a day as needed for wheezing or shortness of breath 300 mL 023 Active cetirizine (ZyrTEC) 10 mg tablet Take 1 tablet (10 mg total) by mouth daily Active benzonatate (TESSALON) 100 mg capsuleIndicati ons:Cough Take 1 capsule (100 mg total) by mouth 3 (three) times a day as needed for cough 42 capsule 025 Active Additional Information Patient not taking.Reported on 03/06/2025 semaglutide (WEGOVY) 0.25 mg/0.5 mL auto-injectorIn dications:Weigh t Loss Management for Obese Patient (BMI >= 30),cardiovascu lar event risk reduction in obesity Inject 0.25 mg under the skin every 7 days 2.5 mL 025 Active Additional Information Patient not taking.Reported on 03/06/2025 omeprazole (PriLOSEC) 40 mg capsuleIndicati ons:Gastroesoph ageal reflux disease without esophagitis TAKE 1 CAPSULE BY MOUTH DAILY 90 capsule 1 025 Active amLODIPine (NORVASC) 10 mg tabletIndicatio ns:Hypertension , unspecified type Take 1 tablet (10 mg total) by mouth daily 90 tablet 1 025 Active spironolactone (ALDACTONE) 25 mg tabletIndicatio ns:Primary hypertension Take 1 tablet (25 mg total) by mouth daily 90 tablet 1 025 Active albuterol HFA (PROVENTIL HFA,VENTOLIN HFA,PROAIR HFA) 90 mcg/actuation inhalerIndicati ons:Mild persistent asthma without complication Inhale 2 puffs every 4 (four) hours as needed for wheezing or shortness of breath 3 each 025 Active fluticasone propion-salmete roL (ADVAIR DISKUS) 250-50 mcg/dose diskus inhalerIndicati ons:Mild persistent asthma without complication,SO B (shortness of breath) Inhale 1 puff 2 (two) times a day Rinse mouth with water after use. Do not swallow. 180 each 025 Active albuterol HFA (PROVENTIL HFA,VENTOLIN HFA,PROAIR HFA) 90 mcg/actuation inhalerIndicati ons:Mild persistent asthma without complication Inhale 2 puffs every 4 (four) hours as needed for wheezing or shortness of breath 20.1 g 1 024 2024 Discontinued fluticasone propion-salmete roL (ADVAIR DISKUS) 250-50 mcg/dose diskus inhalerIndicati ons:Mild persistent asthma without complication,SO B (shortness of breath) Inhale 1 puff 2 (two) times a day Rinse mouth with water after use. Do not swallow. 1 each 5 025 2024 Discontinued(R eorder) clotrimazole-be tamethasone (LOTRISONE) creamIndication s:Poison [place] Apply topically 2 (two) times a day 45 g 1 025 2024 Active Problems Problem Noted Date Diagnosed Date Sleep disturbance 01/13/2025 Assessment & Plan (01/13/2025 7:12 PM CDT): Clinic Non restorative sleep, witnessed apnea loud snoring morbid obesity further evaluation refer to Allergic contact dermatitis 01/13/2025 Assessment & Plan (01/13/2025 7:07 PM CDT): Start patient on betamethasone. 0.5% apply b.I.d. 45 g given Acute non-recurrent frontal sinusitis 09/04/2024 Assessment & Plan (09/04/2024 3:56 PM LONE LEAD LINEMAN): Acute, URI symptoms for 1 week. Tested negative for COVID, FLU, and RSV in office today. Exam findings consistent with frontal sinusitis. Rx Augmentin as directed and Tessalon as needed for cough. If your cough is productive or you have tight chest congestion with thick mucus- you can use a cough expectorant like Mucinex. Benadryl/Zyrtec/kerry can be used to dry up a runny nose or post nasal drip. Sudafed can help with nasal congestion (no more than 5 days due to rebound congestion). Flonase or Nasacort will also help with sinus pressure and nasal drip both. Tylenol/Ibuprofen as needed for pain. Increase fluids (water) Cool mist humidifier at night Use sinus rinses to help flush bacteria and help with congestion. Encouraged honey, marshmallows, gelatin, or chloraseptic to help coat throat. Call with any worsening or persistent symptoms. Immunizations reviewed and up to date 01/10/2024 Assessment & Plan (01/10/2024 6:13 PM CDT): Patient is advised to get a shingles vaccine I strongly emphasized importance for RSV vaccine given her history of asthma and past history of requiring hospitalization secondary to asthma. In addition in his she is exposed to several grandchildren less than 12 years of age. Atopic dermatitis, mild 11/10/2023 Assessment & Plan (11/10/2023 2:39 PM CDT): Mild atopic dermatitis of her foot. It just started using steroid cream previously prescribed for . She has been using it 2 days betamethasone advised her to continue therapy. Advised this is recurrent illness and has no serious consequences Gastroesophageal reflux disease without esophagi tis 11/10/2023 Assessment & Plan (11/10/2023 2:40 PM CDT): Patient has been taking Advil because of joint pains mainly in her foot I will advised patient take arthritis Tylenol start her on omeprazole 40 mg daily x1 month. One refill if symptoms fail to resolve she is to contact me. Edema of both feet 11/10/2023 Assessment & Plan (11/10/2023 2:42 PM CDT): Patient given spironolactone 25 mg daily she is concurrent hypertension. Personal history of colonic polyps 09/19/2023 Encounter for screening colonoscopy 09/19/2023 SOB (shortness of breath) 10/02/2022 Assessment & Plan (07/25/2023 6:08 PM LONE LEAD LINEMAN): Patient comfortable breathing at this time and use on medication albuterol and Symbicort. Assessment & Plan (10/02/2022 1:46 PM LONE LEAD LINEMAN): Likely due to bronchitis or asthma exacerbation, see plan above. Chronic left-sided low back pain without sciatic a 05/15/2022 Assessment & Plan (07/25/2023 6:07 PM LONE LEAD LINEMAN): No significant back pain sees chiropractor on a p.r.n. Assessment & Plan (05/15/2022 4:50 PM CDT): Patient follow-up by chiropractor therapy is helping her. Abnormal glucose 02/26/2019 Assessment & Plan (01/13/2025 7:12 PM CDT): Check hemoglobin HgbA1c patient is morbidly obese has had elevated glucose results in the past and HgbA1c in the past of 5.8. Present HgbA1c 6.0 he has criteria of diabetes Assessment & Plan (02/26/2019 2:51 PM CDT): Patient has had some slightly elevated glucose on previous laboratory studies will get a hemoglobin HgbA1c today. Morbid obesity with BMI of 40.0-44.9, adult 09/06 Assessment & Plan (01/13/2025 7:08 PM CDT): Chronic stable problem patient has hypertension asthma now has symptoms of sleep apnea. Discussed with this patient GLP 1 Wegovy Rx submitted Assessment & Plan (09/04/2024 3:54 PM LONE LEAD LINEMAN): Chronic, uncontrolled. Up 6 lbs in the last 4 months, BMI at 42.9. does not wish to discuss pharmacological treatments at this time. Encouraged continued heart healthy diet/exercise. Assessment & Plan (08/03/2024 3:53 PM LONE LEAD LINEMAN): Not at goal chronic problem unchanged BMI 43.2 Assessment & Plan (01/10/2024 6:09 PM CDT): Patient not at goal no significant change with the past 2 years with respect to her BMI. Morbidities include hypertension Assessment & Plan (09/05/2021 5:51 PM LONE LEAD LINEMAN): Obesity under mass index of 41.32. Hx of colonic polyps 05/14/2018 Overview (05/14/2018): Added automatically from request for surgery [id number] Encounter for preventive health examination 01/2017 Assessment & Plan (08/03/2024 3:56 PM LONE LEAD LINEMAN): History and physical completed patient's health risk assessment health maintenance reviewed and addressed. Patient does not identify any new health problems she has hypertension which is well controlled she has asthma which is very stable morbid obesity remains unchanged. Immunizations discussed twice a day in the past 12 months. CMP fasting lipid profile renal functions will be checked. Assessment & Plan (07/25/2023 6:04 PM LONE LEAD LINEMAN): History and physical completed patient's health risk assessment health maintenance reviewed in addressed cessation discussed. Strongly recommend patient get shingles vaccine handout given. Makes a commitment to complete within the next 6 months. Patient's advised mammogram is overdue approximate 2 months and well-woman exam advised Assessment & Plan (05/15/2022 4:53 PM CDT): History and physical completed immunizations are addressed during this exam recommend update COVID vaccines and flu vaccines Assessment & Plan (04/28/2021 6:12 PM CDT): Patient is here for annual exam. S her last visit with me she has had hospital admission for lithotripsy renal stones. She is asymptomatic at this time. Recent laboratory studies from her lithotripsy reviewed no additional lab needed other than lipid profile. Patient's COVID vaccine is current. Prevnar 13 vaccine given today. Assessment & Plan (04/30/2018 5:31 PM CDT): Order placed for mammogram is breast cancer screening. Colon cancer screening also needed colonoscopy also needed. Assessment & Plan (01/10/2017 10:08 AM CDT): Patient's colonoscopy is due will make appropriate referral. Asthma 12/20/2013 Overview (11/09/2016): Asthma Assessment & Plan (09/04/2024 3:55 PM LONE LEAD LINEMAN): Chronic, exacerbated in the last week due to sinusitis symptoms, see plan above. Assessment & Plan (08/03/2024 3:54 PM LONE LEAD LINEMAN): Patient's asthma stable she is using albuterol on a p.r.n. basis as well as the maintenance medications Advair disc. Assessment & Plan (01/10/2024 6:05 PM CDT): Patient is symptomatic with asthma when she goes to work she works at a department store . Walks across the parking lot distance from the store she will have shortness of breath and wheezing.. Advised her to utilize her albuterol HFA prior to going to work this may cut down the wheezing and shortness of breaths when she arrives 20 minutes later to walk into the store. The he is asymptomatic at this time for asthma. Assessment & Plan (11/15/2022 3:23 PM CDT): Patient has recovered from bronchitis asthma range remains stable no change in therapy Assessment & Plan (10/06/2022 1:33 PM LONE LEAD LINEMAN): Patient remains symptomatic regarding asthma she is making slow improvement. Using albuterol 4 times a day along with Symbicort. Patient speaking complete sentences she is not waking up at night short of breath she does hear herself wheezing sometimes.. Most of her nasal drainage has become less.. Mucus is now clear she is on antibiotics which she will complete in a few days. Plans at this time add Spiriva Respimat to her therapy.. Patient has about 3 days left prednisone. If she becomes worse she is to go to ER otherwise progress report next week Assessment & Plan (09/29/2022 3:16 PM LONE LEAD LINEMAN): Patient has asthma she is required hospitalizations more than once in the past fortunately is not been the case for last 5 years. She complains of shortness of breath on exertion she is okay resting sitting or sleeping. Just walking in here in the waiting room she became short of breath. However O2 saturation never dropped below 92%. No chest tightness she feels congested in her face and sinuses. I increased her prednisone 20 mg twice a day for 5 days continue albuterol treatments. Assessment & Plan (09/25/2022 2:08 PM LONE LEAD LINEMAN): Exacerbated by URI/bronchitis, see plan above. Assessment & Plan (05/15/2022 4:43 PM CDT): Asthma stable patient continues to need albuterol on a p.r.n. basis. He is taking Symbicort as a maintenance dose no change in therapy Assessment & Plan (04/28/2021 6:05 PM CDT): Asthma is been reasonable stable however she has a history of moderate to severe asthma attacks in the past recommend patient get pneumonia vaccine. Assessment & Plan (2020 1:12 PM LONE LEAD LINEMAN): Patient is stable doing well on present medications no change in therapy Assessment & Plan (03/30/2020 12:27 PM CDT): Patient's asthma stable I think it is a good idea for to get a pneumonia vaccine. She will contact insurance company per her request to make sure he is covered.. Uses the albuterol HFA once a week does on average. Assessment & Plan (07/21/2017 3:49 PM LONE LEAD LINEMAN): Patient using rescue inhaler minimal twice a day. She is also using Symbicort 160/4.5. He does not feel as tight in her chest is not cough as S forceful as she has in the past. This time we discussed pneumonia vaccine she is 56 years old has a long history of asthma she has not been admitted to hospital for about 6 years for this. Advised patient check with insurance company make sure that cover the pneumonia vaccine my opinion she is certainly a candidate for given asthma. Patient is comfortable at this time with her breathing status. Other concerns whether not Spiriva should be added to suppress her use of rescue inhalers more often. Assessment & Plan (01/10/2017 10:27 AM CDT): this patient is asthma is controlled she has not had any recent exacerbation. Current medications are albuterol HFA MDI and Symbicort. No change in therapy. Patient has a past history of hospitalizations secondary to asthma and recognizes warning signs an early intervention when needed. Hypertension 12/20/2013 Overview (11/09/2016): Hypertension Assessment & Plan (08/03/2024 3:55 PM LONE LEAD LINEMAN): Pressure 144/76 previous blood pressures have been better will continue amlodipine 10 mg daily spironolactone 25 mg daily. Lipid profile on renal functions are excellent Assessment & Plan (01/10/2024 6:09 PM CDT): Blood pressure 136/78 no symptoms referable to her hypertension she feels well no chest pain. Amlodipine 10 mg spironolactone 25 mg both for daily dose no change in therapy. Patient's renal functions have been normal range no edema of the lower extremities. Assessment & Plan (11/10/2023 2:40 PM CDT): Pressure is at goal patient is tolerating medications. No symptoms referable to hypertension will continue present therapy Assessment & Plan (07/25/2023 6:05 PM LONE LEAD LINEMAN): Hypertension well controlled patient is tolerating medications no change in therapy Assessment & Plan (11/15/2022 3:22 PM CDT): Hypertension well controlled patient is tolerating medications no change in therapy. Assessment & Plan (05/15/2022 4:39 PM CDT): Blood pressure is well controlled patient tolerating medications no change in therapy Assessment & Plan (09/05/2021 5:53 PM LONE LEAD LINEMAN): Hypertension elevated with pain. 158/92. Will continue to monitor etiology of pain is being evaluated at this time. Patient's pain does not suggest angina. No change in blood pressure medicines. Assessment & Plan (04/28/2021 6:07 PM CDT): Patient's blood pressure is excellent this time. Continue present therapy. Deepti bed treated for urinary problems and a blood pressure of increased to systolic greater than 200. Assessment & Plan (2020 1:13 PM LONE LEAD LINEMAN): Blood pressure well controlled patient is tolerating medications no change in therapy Assessment & Plan (03/30/2020 12:08 PM CDT): Hypertension well controlled patient is tolerating medications no change in therapy Assessment & Plan (02/26/2019 2:54 PM CDT): Hypertension remains well control absolutely no change in therapy. Assessment & Plan (07/21/2017 3:50 PM LONE LEAD LINEMAN): Hypertension is unchanged. Continue current treatment regimen. Dietary sodium restriction. Weight loss. Blood pressure will be reassessed at the next regular appointment. Patient blood pressures continue run between 135 and 142 systolic and 85 and 90 diastolic. Continue present medications. Assessment & Plan (01/09/2017 6:22 PM CDT): Hypertension is unchanged. Continue current treatment regimen. Blood pressure will be reassessed at the next regular appointment. Resolved Problems Problem Noted Date Diagnosed Date Resolved Date Hoarseness 11/15/2022 01/10/2024 Assessment & Plan (11/15/2022 3:25 PM CDT): Patient has been having hoarseness for approximate 2 months on a daily basis times she starts out the morning and can speak okay and voice fade s other time she is worse all day because of the duration of hoarseness some referring her to ear nose and throat Sore throat 09/29/2022 11/15/2022 Assessment & Plan (09/29/2022 3:18 PM LONE LEAD LINEMAN): Patient has been sick about 6 days she was tested for influenza and COVID on the results were negative. She is more symptomatic with shortness of breath today his chest x-ray on September 25 was normal. Strep test today is positive for strep throat she is given Augmentin 875 b.i.d. x5 days progress report Sunday. Understands she becomes worse with breathing go to the ER Bronchitis 09/25/2022 11/15/2022 Assessment & Plan (10/02/2022 1:45 PM LONE LEAD LINEMAN): Symptoms for 4 days, tested negative for COVID and FLU at office visit 2 days ago. z pack and prednisone and prednisone with no relief. No acute findings on exam. Order CXR to r/o PNA or other cardiopulmonary process. Finish z pack as directed. Rxd albuterol neb solution as directed. Continue aggressive OTC symptom management. Assessment & Plan (09/25/2022 2:07 PM LONE LEAD LINEMAN): Symptoms for 2 days. Tested negative for COVID and FLU in office today. Significant Clear PND and intermittent expiratory wheezing on exam. No other acute findings. Rxd zithromax and prednisone burst as directed. Continue inhalers as rxd. Use OTC meds as needed for cough. Discussed antihistamine use (zyrtec/kerry) to help dry up mucous. Tylenol/Ibuprofen as needed for pain. Increase fluids (water) Cool mist humidifier at night Use sinus rinses to help flush bacteria and help with congestion. Encouraged honey, marshmallows, or chloraseptic to help coat throat. Call with any worsening or persistent symptoms. Splenomegaly 09/05/2021 05/15/2022 Assessment & Plan (09/05/2021 5:54 PM LONE LEAD LINEMAN): Clinical exam very suggestive of splenomegaly however his patient's size/obese which makes it difficult to confirm this. Patient's ultrasound of abdomen was negative for splenomegaly or any internal I abnormalities. LUQ pain 09/05/2021 05/15/2022 Assessment & Plan (09/05/2021 5:54 PM LONE LEAD LINEMAN): Reviewed note under chest pain for the date of 09/05/2020 . Left ureteral stone 04/18/2021 11/16/19 Acute cystitis without hematuria 04/18/2021 05/15/2022 Assessment & Plan (04/28/2021 6:06 PM CDT): Patient reports receiving Myrbetriq for urinary problems and had a significant elevation of her blood pressure systolic greater than 200 patient was symptomatic. This will be listed as an allergy. Her better he is known to cause hypertension but this was pretty much stream blood pressure readings. Kidney stone 04/18/2021 11/15/2022 Assessment & Plan (04/28/2021 6:13 PM CDT): Patient requests referral to Nutrition because of recurrence renal stones is a list of do's and don't regarding nutrition renal stone she would like to go over this with the pony edger. Chest pain 03/30/2020 05/15/2022 Assessment & Plan (09/05/2021 5:50 PM LONE LEAD LINEMAN): Patient is having pain for the past several months left upper quadrant lower chest wall pain is between midclavicular line from approximately the 10th rib monitor abdomen. Is not related would nausea vomiting shortness of breath or activity may occurred a few minutes to 30 minutes.. A decreasing in frequency pain is reproducible on palpating over abdomen. It was my impression that she has enlarged spleen however ultrasound of her abdomen was completely negative including a normal spleen CBC was requested. Assessment & Plan (03/30/2020 12:26 PM CDT): Patient having recurrence left chest pain last for several minutes to half for longer at times occurs a few times per month started last few months. Patient's EKG is completely normal she is requesting a stress test. Is my opinion distress this is very appropriate patient's EKG is completely normal today. Urinary frequency 02/26/2019 11/15/2022 Assessment & Plan (02/26/2019 2:53 PM CDT): Patient is having some urgency and frequency no actual pain with urination get a urinalysis on her. The patient may very well be diabetic laboratory studies requested. No antibiotics today Nausea 07/13/2018 03/30/2020 Assessment & Plan (07/13/2018 1:07 PM LONE LEAD LINEMAN): Patient is having nausea, she feels tired run down and just general sickness. She is improving compared to 2 days ago. Days ago she had onset of a kidney stone was taken [facility] stone was too large to be removed patient within 8 hr went to [facility] had a stone removed the stent placed. She describes a receiving considerable amount of narcotics fentanyl patch, Dilaudid and oxycodone. She had constipation x1 day she stop the narcotics. She just does not have a full strength at this time she is not in any pain.. He is taking Flomax for renal stone. Advil as needed she has Zofran available but has not needed a chose not to take it. She is very concerned whether she will be return to work on Sunday. Today is Sunday she has a follow-up appointment Sunday with urologist.. Vitals excellent she is in no acute distress she appears to be just not feeling well. Advice conservative therapy Tylenol as needed use the anti nausea medicine as she sees fit. Anticipate probably full recovery in time to return to work on SundayJuly 17. If necessary our write a return to work if the urologist does not. Renal stone 07/13/2018 11/15/2022 Assessment & Plan (05/15/2022 4:40 PM CDT): History of nephrolithiasis requiring lithotripsy x2 Assessment & Plan (07/13/2018 1:10 PM LONE LEAD LINEMAN): Patient developed renal stone on July 17, 2018 she is present care urologist. She recently had a stent placement at [facility]. [place]. . Hip pain, acute, left 04/30/20182020 Assessment & Plan (04/30/2018 5:21 PM CDT): Acute left hip pain without trauma x4 days patient having difficulty walking difficulty getting out of her car she has improved today. She is taking Advil 1 tablets twice a day. Examination pain wright has some pain on palpating on the left hip No deformity noted slight limp walking. She has a known history of osteoarthritis she is status post left knee replacement. X-ray left hip start this patient on prednisone 40 mg per day x2 days then 20 mg per day for 5 days following at progress report early next week. Immunizations Immunization Administration Dates Next Due Influenza, Quadrivalent, Spl it, Intramuscular 05/30/2019 Influenza, Quadrivalent, Spl it, Preservative Free, Intramuscular 07/12/2023,05/15/2022,05/26/2020,05/30,04/30/2018,05/28/2017 Influenza, Trivalent, Cell Culture-based MDCK, Preservative Free, Antibiotic Free, Intramuscular 05/08/2024 Influenza, Trivalent, IM (MDV) 05/06/2021,2018 Influenza, Trivalent, Preser vative Free, Intramuscular 05/27/2017,06/25/2015 Influenza, Unspecified 05/26/2020 Moderna SARS-CoV-2 Monovalen t Vaccination (12+ YRS) 10/27/2020,2020 Pneumococcal Conjugate PCV 13 04/28/2021 Pneumococcal Polysaccharide PPV23 04/20/2020 RSV, Bivalent, Protein Subun it Rsvpref, Diluent (Abrysvo) 05/08/2024 Tdap 04/30/2018,01/21/2016 Social History Tobacco Use Types Packs/Day Years Used Date Smoking Tobacco: Never Smokeless Tobacco: Never Tobacco Cessation:Counseling Given: Not Answered Alcohol Use Standard Drinks/Week Comments Yes 2 (1 standard drink = 0.6 oz pur e alcohol) Occasional AUDIT-C Answer Date Recorded Q1: How often do you have a drink containing alc ohol? 2-4 times a month 04/14/2024 Q2: How many drinks containi ng alcohol do you have on a typical day when you are drinking? 1 or 2 04/14/2024 Q3: How often do you have si x or more drinks on one occasion? Never 04/14/2024 PHQ-2 Answer Date Recorded PHQ-2 Total Score (If total score is 3 or more points, staff should administer the PHQ-9) 0 07/15/2024 Personal Safety Answer Date Recorded Have you ever been in or are you currently in a harmful physical or emotional relationship or is someone making you feel afraid or unsafe? Denies 04/14/2024 Comments No Sex and Gender Information Value Date Recorded Sex Assigned at Not on file Legal Sex Female 5:13 PM LONE LEAD LINEMAN Gender Identity Not on file Sexual Orientation Not on file Occupation Industry Job Start Date Job End Date Not on file Not on file Not on file Not on file Last Filed Vital Signs Vital Sign Reading Time Taken Comments Blood Pressure 131/78 03/06/2025 10:47 AM CDT Pulse 75 03/06/2025 10:47 AM CDT Temperature 37 C (98.6 F) 01/13/2025 9:33 AM CDT Respiratory Rate 16 01/13/2025 9:33 AM CDT Oxygen Saturation 97% 03/06/2025 10:47 AM CDT Inhaled Oxygen Concentration - - Weight 121.1 kg (267 lb) 03/06/2025 10:47 AM CDT Height 167.6 cm (5' 6) 03/06/2025 10:47 AM CDT Body Mass Index 43.09 03/06/2025 10:47 AM CDT Plan of Treatment Not on file Medical Devices Implanted Type Area Tight Barrel Inspector Device Identifier Shelf Expiration Date Model / Serial / Lot CheckPoint HR Amanda 192-123 Polaris Ultra Nautilus 5fr 2.1fr 26cm 2 Durometer Taper Tip Low Latex Free - [id number] Implanted:Qty: 1 on 07/07/2018 by Vivienne Peacock MD at [facility] Stent Right: Ureter [employer] Amanda 03/10/2021 192-123 / / [id number] [employer] Amanda 180-223 Contour 6fr 26cm Large Inner Lumen Low Profile Bladder Hussain Taper Latex Free - Sna - [id number] Implanted:Qty: 1 on 04/18/2021 by Riana Jiménez III, MD at [facility] Left: Ureter [employer] Amanda 03/01/2024 180-223 / NA / [id number] Procedures Procedure Name Priority Date/Time Associated Diagnosis Comments SCREENING MAMMOGRAM BILATERAL W YANIRA Schedule Routine, Read Routine (OP Routine) 01/13/2025 11:15 AM CDT Encounter for screening mammogram for malignant neoplasm of breast HEMOGLOBIN A1C Routine 01/13/2025 10:56 AM CDT Abnormal glucose COLONOSCOPY 04/14/2024 11:01 AM CDT IMAGING PAP AND HPV MRNA E6/E7 Routine 09/24/2018 11:12 AM LONE LEAD LINEMAN Routine cervical smear HEPATITIS C ANTIBODY Routine 01/09/2017 10:58 AM CDT from Last 3 Months or Most Recently Relevant to Health Maintenance Results * SCREENING MAMMOGRAM BILATERAL W YANIRA (01/13/2025 11:15 AM CDT) Anatomical Region Laterality Modality Breast Bilateral Mammography Impressions 01/13/2025 5:40 PM CDT Bilateral No evidence of malignancy in either breast. OVERALL BI-RADS FINAL ASSESSMENT: 2 - Benign RECOMMENDATION: Recommend bilateral annual screening mammography. Narrative 01/13/2025 5:40 PM CDT EXAMINATION: SCREENING MAMMOGRAM BILATERAL W YANIRA: 01/13/2025 COMPARISON: Relevant prior studies available at the time of interpretation were reviewed. TECHNIQUE: Mammography was performed with 2D and digital breast tomosynthesis (DBT) images. CAD was utilized. BREAST PARENCHYMAL COMPOSITION: The breasts are almost entirely fatty. FINDINGS: Bilateral There is no suspicious mass, calcification, or architectural distortion in either breast.There are benign calcifications in both breasts. us Donald Bowens MD IMG MAMMO PROCEDURES Final Result * (ABNORMAL) Hemoglobin A1c (01/13/2025 10:56 AM CDT) Hgb A1C 6.0(H) 4.0 - 5.6 % Comment:Testing performed by : [address] [address] Estimated Average Glucose 126 mg/dL [facility] Comment: The ADA recommends reporting an estimated Average Glucose (eAG) with all Hemoglobin A1c results using the equation derived from a study of 507 normal and diabetic adults. Minority populations were underrepresented and children were not included. (Diabetes Care 31:4129-7472, 2008). The eAG is not equivalent to a fasting glucose. Testing performed by: [address] [address] Blood 01/13/2025 10:5 6 AM CDT 01/13/2025 5:06 PM CDT us Donald Bowens MD LAB BLOOD ORDERABLES Final Result [facility] [address] Department of Laboratories [place] [phone] * Colonoscopy (04/14/2024 11:01 AM CDT) Anatomical Region Laterality Modality Other Narrative Procedure Note Shamar Batres MD - 04/14/2024 11:01 AM CDT [facility] Patient Name: Gracie Harden Procedure Date: 04/14/2024 11:01 AM Date of : 1960 Admit Type: Outpatient Age: 63 Gender: Female Attending MD: Shamar Batres M.D. Room: [facility] END[facility]COPY ROOM 3 Note Status: Finalized Patient Profile: This is a 63 year old female history of HTN,asthma, chronic back pain, morbid obesity here for colonpolyp surveillance. Last colonoscopy from 2017 showed hemorrhoids otherwise normal. Previously had polyps from 2002 with polyps however no report for review. Family hx of maternal uncle with colon cancer. Procedure: Colonoscopy Indications: High risk colon cancer surveillance: Personalhistory of colonic polyps, Last colonoscopy: June2018 Referring MD: Donald Bowens M.D. Providers: Shamar Batres M.D. Impression: - Preparation of the colon was fair. - Perianal skin tags found on perianal exam. - One 5 mm polyp in the transverse colon, removedwith a cold snare. Complete resection. Polyp tissue not retrieved. - Diverticulosis in the sigmoid colon. - External and internal hemorrhoids. - Redundant colon. Recommendation: - Patient has a contact number available for emergencies. The signs and symptoms of potential delayed complications were discussed with thepatient. Return to normal activities tomorrow. Written discharge instructions were provided to thepatient. - Discharge patient to home (with escort). - Resume previous diet. - Continue present medications. - Await pathology results. - Repeat colonoscopy in 3 years with 2 day prep for surveillance based on pathology results. - Return to referring physician as previously scheduled. Medicines: Monitored Anesthesia Care Complications: No immediate complications. Estimated Blood Loss: Estimated blood loss was minimal. Procedure: Pre-Anesthesia Assessment: - Prior to the procedure, a History and Physicalwas performed, and patient medications and allergieswere reviewed. The patient is competent. The risks and benefits of the procedure and the sedation optionsand risks were discussed with the patient. Allquestions were answered and informed consent was obtained. Patient identification and proposed procedure were verified by the physician, the biofuels manager and the aerospace technician in the endoscopy suite. Mental Status Examination: normal. Prophylactic Antibiotics: The patient does not require prophylactic antibiotics. Prior Anticoagulants: The patient has taken no anticoagulant or antiplatelet agents. Afterreviewing the risks and benefits, the patient was deemed in satisfactory condition to undergo the procedure.The anesthesia plan was to use monitored anesthesiacare (MAC). Immediately prior to administration of medications, the patient was re-assessed foradequacy to receive sedatives. The heart rate, respiratory rate, oxygen saturations, blood pressure, adequacyof pulmonary ventilation, and response to care were monitored throughout the procedure. The physical status of the patient was re-assessed after the procedure. The benefits, risks and alternatives of theprocedure and sedation were discussed and informed consentwas obtained. All questions were answered. Please referto the signed informed consent document in the medical record. The bowel preparation used was Miralax and bisacodyl tablets via split dose instruction. The scope was passed under direct vision. TheColonoscope [id number] was introduced through the anus and advanced to the the cecum, identified by appendiceal orifice and ileocecal valve. The colonoscopy was somewhat difficult due to aredundant colon and a tortuous colon. The patient toleratedthe procedure well. The quality of the bowelpreparation was fair. Bowel prep was administered using a split dose. Findings: Skin tags were found on perianal exam. A 5 mm polyp was found in the transverse colon. The polyp was flat.The polyp was removed with a cold snare. Resection was complete, but the polyp tissue was not retrieved. A few small-mouthed diverticula were found in the sigmoid colon. External and internal hemorrhoids were found during retroflexion. The colon (entire examined portion) was redundant. Shamar Batres M.D. 04/14/2024 1:20:08 PM Number of Addenda: 0 Note Initiated On: 04/14/2024 11:01 AM Procedure Code(s): --- Professional --- 14435, Colonoscopy, flexible; with removal of tumor(s), polyp(s), or other lesion(s) by snare technique --- Technical --- 72499, Colonoscopy, flexible; with removal of tumor(s), polyp(s), or other lesion(s) by snare technique Diagnosis Code(s): --- Professional --- Z86.010, Personal history of colonic polyps K64.8, Other hemorrhoids D12.3, Benign neoplasm of transverse colon (hepatic flexure orsplenic flexure) K64.4, Residual hemorrhoidal skin tags K57.30, Diverticulosis of large intestine without perforation orabscess without bleeding --- Technical --- Z86.010, Personal history of colonic polyps K64.8, Other hemorrhoids D12.3, Benign neoplasm of transverse colon (hepatic flexure orsplenic flexure) K64.4, Residual hemorrhoidal skin tags K57.30, Diverticulosis of large intestine without perforation orabscess without bleeding CPT copyright 2020 [employer]. All rights reserved. The codes documented in this report are preliminary and upon solar system designer reviewmay be revised to meet current compliance requirements. Recognized by the [employer] for promoting quality in endoscopy Shamar Batres MD ENDOSCOPY PROCEDURES Final Resul t * Imaging Pap and HPV mRNA E6/E7 (09/24/2018 11:12 AM LONE LEAD LINEMAN) CLINICAL INFORMATION: [facility] - Comment:Information not prov ided LMP [facility] - Comment:INFORMATION NOT PROV IDED Previous Pap [facility] - Comment:INFORMATION NOT PROV IDED Prev. Bx [facility] - Comment:INFORMATION NOT PROV IDED SOURCE: [facility] - Comment:Cervix, Endocervix Pap, specimen adequacy [facility] - Comment: Satisfactory for evaluation. Endocervical/transformation zone component present. HPV interp [facility] - Comment:Negative for intraep ithelial lesion or malignancy. COMMENTS [facility] - Comment: This Pap test has been evaluated with computer assisted technology. Oxygen Plant Operator [facility] - Comment: LVA, CT(ASCP) CT screening location: [place] [address] [place] [address] Comment [facility] - Comment: EXPLANATORY NOTE: The Pap is a screening test for cervical cancer. It is not a diagnostic test and is subject to false negative and false positive results. It is most reliable when a satisfactory sample, regularly obtained, is submitted with relevant clinical findings and history, and when the Pap result is evaluated along with historic and current clinical information. Human papillomavirus RNA, High Risk E6/E7 Not Detected Not Detected [facility] Comment: This test was performed using the APTIMA HPV Assay ([employer] This assay detects E6/E7 viral messenger RNA (mRNA) from 14 high-risk HPV types (16,18,31,33,35,39,45,51,52,56,58,59,66,68). The analytical performance characteristics of this assay have been determined by [facility]. The modifications have not been cleared or approved by the FDA. This assay has been validated pursuant to the CLIA regulations and is used for clinical purposes. Fluid 09/24/2018 11:1 2 AM LONE LEAD LINEMAN 09/25/2018 7:18 AM LONE LEAD LINEMAN Narrative Resulting Agency Comment Performing Organization Information: Site ID: [place] Name: [facility] Address: [address] [place] [address] Director: Donald Zaman D.O., MPH [facility] ID: [facility] Address: [address] [place] [address] Director: Bakari Queen Peace Tovar MD LAB PATHOLOGY ORDERAB LES Final Result Performing Organization Address City/State/[facility] Co de Phone Number [facility] - [place], [place] [facility] - [place], [place] * Hepatitis C antibody (01/09/2017 10:58 AM CDT) Hep C Ab NON-REACTI VE NON-REACTI VE [facility] SIGNAL TO CUT-OFF 0.02 <1.00 [facility] - [place] 01/09/2017 10:5 8 AM CDT 01/09/2017 11:00 AM CDT Narrative [facility] - 01/10/2017 7:21 AM CDT FASTING:YES Resulting Agency Comment Performing Organization Information: Site ID: [id number] Name: [facility] Address: [address] [address] Director: Donald Zaman D.O., MPH us Donald Bowens MD LAB MICROBIOLOGY - GENERAL ORDERABLES Final Result [facility] [place] from Last 3 Months or Most Recently Relevant to Health Maintenance Insurance [place] [employer] OOS BLUE ACCESS OOS ANTHEM ACCESS CHOICE Advance Directives For more information, please contact: [phone] * Full Code (Latest Code Status on File) Date Activated Date Inactivated Comments 04/14/2024 10:51 AM 04/14/2024 6:28 PM * Full Code Date Activated Date Inactivated Comments 04/14/2024 10:51 AM 04/14/2024 10:51 AM * Full Code Date Activated Date Inactivated Comments 04/18/2021 9:10 AM 04/19/2021 4:42 PM * Full Code Date Activated Date Inactivated Comments 06/14/2018 8:58 AM 06/14/2018 1:22 PM * Full Code Date Activated Date Inactivated Comments 06/14/2018 8:58 AM 06/14/2018 8:58 AM Care Teams Spudder Relationship Specialty Start Date End Date Donald Bowens MD PCP - General 11/03/16 Cornelio Loera MD Consulting Physician Urology 04/19/21
--- OUTSIDE RECORDS SUMMARY | 2025-03-10 17:40 | XMS_ITS | Encounter Summary ---
Author Organization [facility] Address [address] [place] [address] Phone Care Team Providers Care Shell Worker Name Role Phone Donald Bowens MD Primary Care Provider [phone] Cornelio Loera MD Unavailable [phone] Encounter Details Date Type Department Care Team (Late st Contact Info) Description 09/12/2021 Orders Only [facility] [address] [place] [id number] Scanning, Provider Social History Tobacco Use Types Packs/Day Years Used Date Smoking Tobacco: Never Smokeless Tobacco: Never Alcohol Use Standard Drinks/Week Comments Yes 2 (1 standard drink = 0.6 oz pur e alcohol) Occasional AUDIT-C Answer Date Recorded Q1: How often do you have a drink containing alc ohol? 2-4 times a month 04/13/2021 Q2: How many drinks containi ng alcohol do you have on a typical day when you are drinking? 1 or 2 04/13/2021 Q3: How often do you have si x or more drinks on one occasion? Never 04/13/2021 Comments No Sex and Gender Information Value Date Recorded Sex Assigned at Not on file Legal Sex Female 5:13 PM DIGITAL MANAGER Gender Identity Not on file Sexual Orientation Not on file Occupation Industry Job Start Date Job End Date Not on file Not on file Not on file Not on file documented as of this encounter Plan of Treatment Not on file documented as of this encounter Procedures Procedure Name Priority Date/Time Associated Diagnosis Comments SCAN - RADIOLOGY/IMAGING 09/12/2021 documented in this encounter Results * SCAN - RADIOLOGY/IMAGING (09/12/2021) Anatomical Region Laterality Modality Other us Provider Scanning Final Result documented in this encounter Visit Diagnoses Not on filedocumented in this encounter Additional Health Concerns Infection Onset Date Last Indicated Resolved Time COVID: Suspected 09/25/2022 09/25/2022 09/25/2022 2:00 PM DIGITAL MANAGER COVID: Suspected 09/29/2022 09/29/2022 09/29/2022 12:02 PM DIGITAL MANAGER COVID: Suspected 09/04/2024 09/04/2024 09/04/2024 3:15 PM DIGITAL MANAGER documented as of this encounter Care Teams Shell Worker Relationship Specialty Start Date End Date Donald Bowens MD PCP - General 11/03/16 Cornelio Loera MD Consulting Physician Urology 04/19/21 documented as of this encounter
--- OUTSIDE RECORDS SUMMARY | 2025-03-10 17:40 | XMS_ITS | Clinical Summary ---
Author Organization [facility] [address] Address [address] [place] [address] Phone Care Team Providers Care Managed Care Specialist Name Role Phone Donald Bowens MD Primary Care Provider [phone] ArCornelio ayala MD Unavailable [phone] Allergies Active Allergy Reactions Criticality Noted Date [...] Discontinued(R eorder) clotrimazole-be tamethasone (LOTRISONE) creamIndication s:Poison Tucker Apply topically 2 (two) times a day [...] 09/04/2024 Assessment & Plan (09/04/2024 3:56 PM ELECTRICAL PROSPECTING SUPERVISOR): Acute, URI symptoms for 1 week. Tested negative for COVID, FLU, and RSV in office today. Exam findings consistent with frontal sinusitis. Rx Augmentin as directed and Tessalon as needed for cough. If your cough is productive or you have tight chest congestion with thick mucus- you can use a cough expectorant like Mucinex. Benadryl/Zyrtec/keryr can be used to dry up a [...] 10/02/2022 Assessment & Plan (07/25/2023 6:08 PM ELECTRICAL PROSPECTING SUPERVISOR): Patient comfortable breathing at this time and use on medication albuterol and Symbicort. Assessment & Plan (10/02/2022 1:46 PM ELECTRICAL PROSPECTING SUPERVISOR): Likely due to bronchitis or asthma exacerbation, see plan above. Chronic left-sided low back pain without sciatic a 05/15/2022 Assessment & Plan (07/25/2023 6:07 PM ELECTRICAL PROSPECTING SUPERVISOR): No significant back pain sees chiropractor on [...] submitted Assessment & Plan (09/04/2024 3:54 PM ELECTRICAL PROSPECTING SUPERVISOR): Chronic, uncontrolled. Up 6 lbs in the last 4 months, BMI at 42.9. does not wish to discuss pharmacological treatments at this time. Encouraged continued heart healthy diet/exercise. Assessment & Plan (08/03/2024 3:53 PM ELECTRICAL PROSPECTING SUPERVISOR): Not at goal chronic problem unchanged BMI 43.2 Assessment & Plan (01/10/2024 6:09 PM CDT): Patient not at goal no significant change with the past 2 years with respect to her BMI. Morbidities include hypertension Assessment & Plan (09/05/2021 5:51 PM ELECTRICAL PROSPECTING SUPERVISOR): Obesity under mass index of 41.32. Hx of colonic polyps 05/14/2018 Overview (05/14/2018): Added automatically from request for surgery [id number] Encounter for preventive health examination 01/2017 Assessment & Plan (08/03/2024 3:56 PM ELECTRICAL PROSPECTING SUPERVISOR): History and physical completed patient's health risk [...] checked. Assessment & Plan (07/25/2023 6:04 PM ELECTRICAL PROSPECTING SUPERVISOR): History and physical completed patient's health risk [...] Asthma Assessment & Plan (09/04/2024 3:55 PM ELECTRICAL PROSPECTING SUPERVISOR): Chronic, exacerbated in the last week due to sinusitis symptoms, see plan above. Assessment & Plan (08/03/2024 3:54 PM ELECTRICAL PROSPECTING SUPERVISOR): Patient's asthma stable she is using albuterol [...] therapy Assessment & Plan (10/06/2022 1:33 PM ELECTRICAL PROSPECTING SUPERVISOR): Patient remains symptomatic regarding asthma she is [...] week Assessment & Plan (09/29/2022 3:16 PM ELECTRICAL PROSPECTING SUPERVISOR): Patient has asthma she is required hospitalizations [...] treatments. Assessment & Plan (09/25/2022 2:08 PM ELECTRICAL PROSPECTING SUPERVISOR): Exacerbated by URI/bronchitis, see plan above. Assessment [...] vaccine. Assessment & Plan (2020 1:12 PM ELECTRICAL PROSPECTING SUPERVISOR): Patient is stable doing well on present [...] average. Assessment & Plan (07/21/2017 3:49 PM ELECTRICAL PROSPECTING SUPERVISOR): Patient using rescue inhaler minimal twice a [...] Hypertension Assessment & Plan (08/03/2024 3:55 PM ELECTRICAL PROSPECTING SUPERVISOR): Pressure 144/76 previous blood pressures have been [...] therapy Assessment & Plan (07/25/2023 6:05 PM ELECTRICAL PROSPECTING SUPERVISOR): Hypertension well controlled patient is tolerating medications no change in therapy Assessment & Plan (11/15/2022 3:22 PM CDT): Hypertension well controlled patient is tolerating medications no change in therapy. Assessment & Plan (05/15/2022 4:39 PM CDT): Blood pressure is well controlled patient tolerating medications no change in therapy Assessment & Plan (09/05/2021 5:53 PM ELECTRICAL PROSPECTING SUPERVISOR): Hypertension elevated with pain. 158/92. Will continue [...] 200. Assessment & Plan (2020 1:13 PM ELECTRICAL PROSPECTING SUPERVISOR): Blood pressure well controlled patient is tolerating medications no change in therapy Assessment & Plan (03/30/2020 12:08 PM CDT): Hypertension well controlled patient is tolerating medications no change in therapy Assessment & Plan (02/26/2019 2:54 PM CDT): Hypertension remains well control absolutely no change in therapy. Assessment & Plan (07/21/2017 3:50 PM ELECTRICAL PROSPECTING SUPERVISOR): Hypertension is unchanged. Continue current treatment regimen. [...] 11/15/2022 Assessment & Plan (09/29/2022 3:18 PM ELECTRICAL PROSPECTING SUPERVISOR): Patient has been sick about 6 days [...] 11/15/2022 Assessment & Plan (10/02/2022 1:45 PM ELECTRICAL PROSPECTING SUPERVISOR): Symptoms for 4 days, tested negative for COVID and FLU at office visit 2 days ago. z pack and prednisone and prednisone with no relief. No acute findings on exam. Order CXR to r/o PNA or other cardiopulmonary process. Finish z pack as directed. Rxd albuterol neb solution as directed. Continue aggressive OTC symptom management. Assessment & Plan (09/25/2022 2:07 PM ELECTRICAL PROSPECTING SUPERVISOR): Symptoms for 2 days. Tested negative for [...] 05/15/2022 Assessment & Plan (09/05/2021 5:54 PM ELECTRICAL PROSPECTING SUPERVISOR): Clinical exam very suggestive of splenomegaly however his patient's size/obese which makes it difficult to confirm this. Patient's ultrasound of abdomen was negative for splenomegaly or any internal I abnormalities. LUQ pain 09/05/2021 05/15/2022 Assessment & Plan (09/05/2021 5:54 PM ELECTRICAL PROSPECTING SUPERVISOR): Reviewed note under chest pain for the [...] like to go over this with the film composer. Chest pain 03/30/2020 05/15/2022 Assessment & Plan (09/05/2021 5:50 PM ELECTRICAL PROSPECTING SUPERVISOR): Patient is having pain for the past [...] 03/30/2020 Assessment & Plan (07/13/2018 1:07 PM ELECTRICAL PROSPECTING SUPERVISOR): Patient is having nausea, she feels tired run down and just general sickness. She is improving compared to 2 days ago. Days ago she had onset of a kidney stone was taken [facility] stone was too large to be removed patient within 8 hr went to [facility] had a stone removed the stent placed. [...] x2 Assessment & Plan (07/13/2018 1:10 PM ELECTRICAL PROSPECTING SUPERVISOR): Patient developed renal stone on July 17, 2018 she is present care urologist. She recently had a stent placement at [facility]. [place]. . Hip pain, acute, left 04/30/20182020 Assessment [...] following at progress report early next week. Encounters Date Type Department Care Team Description 03/06/2025 11:00 AM CDT Office Visit [facility] [address] [place] [phone] Mary Carmen Alston MD SANDRA (obstructive sleep apnea) (Primary Dx); Hypersomnia with sleep apnea; Morbid obesity with BMI of 40.0-44.9, adult (HCC) 02/12/2025 Telephone [facility] [address] [place] [phone] Donald Bowens MD 01/23/2025 Telephone [facility] [address] [place] [phone] Donald Bowens MD 01/14/2025 Results [facility] [address] [place] [address] Donald Bowens MD Hemoglobin A1c 01/13/2025 11:00 AM CDT Lab [facility] [address] [place] [address] Abnormal glucose 01/13/2025 10:30 AM CDT Ancillary Procedure [facility] [address] [place] [address] 01/13/2025 9:45 AM CDT [facility] [address] [place] [address] Donald Bowens MD Morbid obesity with BMI of 40.0-44.9, adult (HCC) (Primary Dx); Encounter for screening mammogram for malignant neoplasm of breast; Primary hypertension; Sleep disturbance; Abnormal glucose from Last 3 Months Immunizations Immunization Administration Dates Next Due Influenza, [...] it Rsvpref, Diluent (Abrysvo) 05/08/2024 Tdap 04/30/2018,01/21/2016 Surgical History Surgery Date Site/Laterality Comments COLONOSCOPY 06/02/2003 REDUCTION MAMMAPLASTY 08/06/2012 - 08/05/2013 TOTAL KNEE ARTHROPLASTY 08/06/2007 - 08/05/2008 Left SECTION 08/06/1990 - 08/05/1991 CYSTOSCOPY W/ URETEROSCOPY W/ LITHOTRIPSY 08/06/2017 - 08/05/2018 Right Right ureteral stone, cystoscopy with laser lithotripsy CYSTOSCOPY INSERTION / REMOVAL STENT / STONE 04/06/2021 - 05/05/2021 Left Left ureteral stone, cystoscopy with stone extraction stent placement, Klebsiella urinary tract infection COLONOSCOPY 06/06/2018 - 07/05/2018 COLONOSCOPY 04/14/2024 Medical History Medical History Date Comments Colon polyp 06/02/2003 Hypertension Asthma Nephrolithiasis 2017-right urete ral stone, 2020 left ureteral stone Morbid obesity (HCC) BMI 42 GERD (gastroesophageal reflux disease) Urinary tract infection 04/2021 Marilyndayami campoverde urinary tract infection Family History Medical History Relation Name Comments COPD Father Colon polyps Father Skin cancer Maternal Grandmother Blood Clot Mother Colon cancer Mother's Brother Skin cancer Mother's Sister Relation Name Status Comments Father (Age 81) Maternal Grandmother Mother Mother's Brother Mother's Sister Social History Tobacco Use Types Packs/Day Years [...] on file Legal Sex Female 5:13 PM ELECTRICAL PROSPECTING SUPERVISOR Gender Identity Not on file Sexual Orientation Not on file Occupation Industry Job Start Date Job End Date Not on file Not on file Not on file Not on file Obstetrics History Para Term AB IAB SAB Ectopic Multiple Livin g Live Births 3 3 2 1 0 3 Date Outcome GA Total Labor Labor/2nd/3rd Weight Sex Type Anes PTL Sandra A1 A5 Name Clin Term Term Last Filed Vital Signs Vital Sign Reading [...] 03/06/2025 10:47 AM CDT Plan of Treatment Health Maintenance Due Date Last Done Comments Zoster Vaccine (1 of 2) 2010 Cervical Cancer Screening 09/24/2023 09/24/2018 Influenza Vaccine (#1) 2025 , 07/12/2023, 05/15/2022, Additional history exists Depression Screening 07/15/2025 07/15/2024, 07/12/2023, 05/15/2022 Regular Well Visit/Exam 18-64 07/15/2025, 07/12/2023, 05/15/2022, Additional history exists Breast Cancer Screening-Mammogram 01/13/2026 01/13/2025, 10/30/2023, 05/15/2022, Additional history exists Pneumococcal vaccine <65 (3 of 3 - PCV20 or PCV21) 04/28/2026 04/28/2021, 04/20/2020 Colon Cancer Screening-Colonoscopy 04/14/2027 04/14/2024, 06/14/2018 DTaP/Tdap/Td Vaccine (3 - Td or Tdap) 04/30/2028 04/30/2018, 01/21/2016 Hepatitis C Screening Completed 01/09/2017 Colon Cancer Screening-CT Colonography Discontinued 04/14/2024, 06/14/2018 Colon Cancer Screening-DNA Stool Discontinued 04/14/20 24, 06/14/2018 Colon Cancer Screening-FIT Discontinued 04/14/2024, Colon Cancer Screening-Sigmoidoscopy Discontinued 04/14/2024, 06/14/2018 Covid-19 Vaccine Completed 05/08/2024, , 02/16/2022, Additional history exists Hepatitis B Screening Discontinued Medical Devices Implanted Type Area Asphalt Screed Operator Device Identifier Shelf Expiration Date Model / Serial / Lot [employer] Amanda 192-123 Polaris Ultra Nautilus 5fr 2.1fr 26cm 2 Durometer Taper Tip Low Latex Free - [id number] Implanted:Qty: 1 on 07/07/2018 by Vivienne Peacock MD at [facility] Stent Right: Ureter [employer] Amanda 03/10/2021 192-123 / / [id number] [employer] Amanda 180-223 Contour 6fr 26cm Large Inner Lumen Low Profile Bladder Hussain Taper Latex Free - Sna - [id number] Implanted:Qty: 1 on 04/18/2021 by Riana Jiménez III, MD at [facility] Left: Ureter [employer] Amanda 03/01/2024 180-223 / NA / [id number] Procedures Procedure Name Priority Date/Time Associated Diagnosis Comments SCREENING MAMMOGRAM BILATERAL W YANIRA Schedule Routine, Read Routine (OP Routine) 01/13/2025 11:15 AM CDT Encounter for screening mammogram for malignant neoplasm of breast HEMOGLOBIN A1C Routine 01/13/2025 10:56 AM CDT Abnormal glucose COLONOSCOPY 04/14/2024 11:01 AM CDT IMAGING PAP AND HPV MRNA E6/E7 Routine 09/24/2018 11:12 AM ELECTRICAL PROSPECTING SUPERVISOR Routine cervical smear HEPATITIS C ANTIBODY Routine [...] breast.There are benign calcifications in both breasts. Donald Bowens MD IMG MAMMO PROCEDURES Final Result * (ABNORMAL) Hemoglobin A1c (01/13/2025 10:56 AM CDT) Hgb A1C 6.0(H) 4.0 - 5.6 % Comment:Testing performed by : [facility], [address] [place] [address]., [id number] Estimated Average Glucose 126 mg/dL [facility] Comment: The ADA recommends reporting an estimated Average Glucose (eAG) with all Hemoglobin A1c results using the equation derived from a study of 507 normal and diabetic adults. Minority populations were underrepresented and children were not included. (Diabetes Care 31:9440-2389, 2008). The eAG is not equivalent to a fasting glucose. Testing performed by: [facility], [address] [place] [address], [place]., [address] Blood 01/13/2025 10:5 6 AM CDT 01/13/2025 5:06 PM CDT Donald Bowens MD LAB BLOOD ORDERABLES Final Result [facility] [address] [place] [address] Department [place] [address] * Colonoscopy (04/14/2024 11:01 AM CDT) Anatomical Region Laterality Modality Other Narrative Procedure Note Shamar Batres MD - 04/14/2024 11:01 AM CDT [facility] Patient Name: Gracie Harden Procedure Date: 04/14/2024 11:01 AM Date of : 1960 Admit Type: Outpatient Age: 63 Gender: Female Attending MD: Shamar Batres M.D. Room: [facility] ENDOSCOPY ROOM 3 Note Status: Finalized Patient [...] procedure were verified by the physician, the clearing house clerk and the radiologic technician in the endoscopy suite. Mental Status [...] scope was passed under direct vision. TheColonoscope [id number] was introduced through the anus and advanced [...] 11:01 AM Procedure Code(s): --- Professional --- 48478, Colonoscopy, flexible; with removal of tumor(s), polyp(s), or other lesion(s) by snare technique --- Technical --- 58162, Colonoscopy, flexible; with removal of tumor(s), polyp(s), [...] perforation orabscess without bleeding CPT copyright 2020 [employer] [place] [employer]. All rights reserved. The codes documented in this report are preliminary and upon clinical secretary reviewmay be revised to meet current compliance requirements. Recognized by the [place] [employer] for promoting quality in endoscopy us Shamar Batres MD ENDOSCOPY PROCEDURES Final Resul t * Imaging Pap and HPV mRNA E6/E7 (09/24/2018 11:12 AM ELECTRICAL PROSPECTING SUPERVISOR) CLINICAL INFORMATION: [facility] [place] Comment:Information not prov ided LMP [facility] [place] Comment:INFORMATION NOT PROV IDED Previous Pap [facility] - Comment:INFORMATION NOT PROV IDED Prev. Bx [facility] [place] Comment:INFORMATION NOT PROV IDED SOURCE: [facility] - Comment:Cervix, Endocervix Pap, specimen adequacy [facility] - Comment: Satisfactory for evaluation. Endocervical/transformation zone component present. HPV interp [facility] - Comment:Negative for intraep ithelial lesion or malignancy. COMMENTS [facility] - Comment: This Pap test has been evaluated with computer assisted technology. [facility] - Comment: LVA, CT(ASCP) CT screening location: [place] [address] [address] [address] Comment [facility] - Comment: EXPLANATORY NOTE: The Pap [...] High Risk E6/E7 Not Detected Not Detected [facility] Comment: This test was performed using the APTIMA HPV Assay ([employer] This assay detects E6/E7 viral messenger RNA (mRNA) from 14 high-risk HPV types (16,18,31,33,35,39,45,51,52,56,58,59,66,68). The analytical performance characteristics of this assay have been determined by [facility]. The modifications have not been cleared or approved by the FDA. This assay has been validated pursuant to the CLIA regulations and is used for clinical purposes. Fluid 09/24/2018 11:1 2 AM ELECTRICAL PROSPECTING SUPERVISOR 09/25/2018 7:18 AM ELECTRICAL PROSPECTING SUPERVISOR Narrative Resulting Agency Comment Performing Organization Information: Site ID: [place] Name: [facility] Address: [address] [address] Director: Donald Zaman D.O., MPH Site ID: [place] Name: [facility] Address: [address] [address] Director: Bakari Queen us Peace Tovar MD LAB PATHOLOGY ORDERAB LES Final Result [facility] [place], [place] [facility] [place] [address] [place] * Hepatitis C antibody (01/09/2017 10:58 AM CDT) Hep C Ab NON-REACTI VE NON-REACTI VE [facility] [place] SIGNAL TO CUT-OFF 0.02 <1.00 [facility] [place] 01/09/2017 10:5 8 AM CDT 01/09/2017 11:00 AM CDT Narrative [facility] - 01/10/2017 7:21 AM CDT FASTING:YES Resulting Agency Comment Performing Organization Information: Site ID: [place] Name: [facility] Address: [id number] [place] [address] [address] [address] Director: Donald Zaman D.O., MPH us Donald Bowens MD LAB MICROBIOLOGY - GENERAL ORDERABLES Final Result [facility] [place] [address] from Last 3 Months or Most Recently Relevant to Health Maintenance Insurance [facility] BLUE ACCESS OOS [employer] OOS ANTHEM ACCESS CHOICE Advance Directives For more information, please contact: [phone] * Full Code (Latest Code Status on [...] 8:58 AM 06/14/2018 8:58 AM Care Teams Managed Care Specialist Relationship Specialty Start Date End Date Donald Bowens MD PCP - General 11/03/16 Cornelio Loera MD Consulting Physician Urology 04/19/21
--- OUTSIDE RECORDS SUMMARY | 2025-03-10 17:40 | XMS_ITS | Clinical Summary ---
Author Organization [facility] Address [address], [address] [address] Phone Care Team Providers Care Interlacer Name Role Phone Salty Lin MD Unavailable [phone] Donald Bowens MD Primary Care Provider [phone] Allergies No known active allergies Medications Ibuprofen ([facility] IBUPROFEN) 200 MG Capsule Take 400 mg by mouth 2 times daily as needed. Active Amlodipine-Olme sartan (JASMEET) 10-40 MG Tablet Take by mouth daily. Active ALBUTEROL IN take by inhalation. Albuterol inhaler 17g AERB Active budesonide-form oterol fumarate (SYMBICORT) 160-4.5 MCG/ACT Aerosol take by inhalation. 7 Active cyclobenzaprine (FLEXERIL) 5 MG Tablet Take 1 Tablet by mouth 3 times daily as needed for Muscle spasms. 15 Tablet 3 Active Active Problems No known active problems Immunizations Immunization Administration Dates Next Due Covid-19, Mrna, Lnp-s, PF, 1 00 mcg/0.5 mL Dose (Moderna) 10/27/2020,2020 Influenza Vaccine greater than 3 yrs 06/05/2019 Family History Medical History Relation Name Comments No Known Problems Brother Diabetes Father No Known Problems Maternal Grandfather No Known Problems Maternal Grandmother Colon Cancer Maternal Uncle Arthritis Mother Clotting Disorder Mother No Known Problems Other No Known Problems Paternal Grandfather No Known Problems Paternal Grandmother No Known Problems Sister Relation Name Status Comments Brother Father Maternal Grandfather Maternal Grandmother Maternal Uncle Mother Alive Other Paternal Grandfather Paternal Grandmother Sister Social History Tobacco Use Types Packs/Day Years Used Date Smoking Tobacco: Never Smokeless Tobacco: Never Alcohol Use Standard Drinks/Week Comments Yes 0 (1 standard drink = 0.6 oz pur e alcohol) occasional Comments No Sex and Gender Information Value Date Recorded Sex Assigned at Not on file Legal Sex Female 10:57 PM CDT Gender Identity Not on file Sexual Orientation Not on file Last Filed Vital Signs Vital Sign Reading Time Taken Comments Blood Pressure 163/85 04/26/2023 7:41 PM CDT Pulse 73 04/26/2023 9:32 PM CDT Temperature 36.6 C (97.9 F) 04/26/2023 7:41 PM CDT Respiratory Rate 16 04/26/2023 9:32 PM CDT Oxygen Saturation 99% 04/26/2023 9:32 PM CDT Inhaled Oxygen Concentration - - Weight 121.9 kg (268 lb 11.9 oz) 04/26/2023 7:41 PM CDT Height 167.6 cm (5' 6) 04/26/2023 7:41 PM CDT Body Mass Index 43.38 04/26/2023 7:41 PM CDT Plan of Treatment Health Maintenance Due Date Last Done Comments Hepatitis C Virus (HCV) Screening 1960 Mammogram 1960 Pap Smear 1981 Cervical Cancer Screening (CCS) 1990 HPV/Cotest 1990 Cologuard 2005 Colonoscopy 2005 Colorectal Cancer Screening 2005 Immunochemical Fecal Occult Blood 2005 Zoster Immunization (1 of 2) 2010 Respiratory Syncytial Virus (RSV) Immunization (Adult) (1 - Risk 60-74 years 1-dose series) 2020 SARS-COV-2 Immunization ( season) 2024 02/16/2022, 06/18/2021, 10/27/2020, Additional history exists Influenza Immunization (#1) 04/06/202505/06, 05/06/2021, 05/26/2020, Additional history exists Pneumococcal Immunization (50+ years) (3 of 3 - PCV20 or PCV21) 04/28/2026 04/28/2021, 04/20/2020 DTaP/Tdap/Td Immunization Discontinued 04/30/2018, TdaP Immunization Completed 04/30/2018, 01/21/2016 Pneumococcal Immunization Combined Discontinued 04/28/2021, 04/20/2020 Hepatitis B Immunization Aged Out No longer eligible based on patient's age to complete this topic Human Papillomavirus (HPV) Immunization Aged Out No longer eligible based on patient's age to complete this topic Meningococcal Immunization (ACWY) Aged Out No longer eligible based on patient's age to complete this topic Rotavirus Immunization Aged Out No lo nger eligible based on patient's age to complete this topic Insurance [employer] Care Teams Interlacer Relationship Specialty Start Date End Date Donald Bowens MD [address] [address] PCP - General Internal Medicine 05/08/17 Salty Lin MD General Surgery 05/02/17
--- OUTSIDE RECORDS SUMMARY | 2025-03-10 17:40 | XMS_ITS | Encounter Summary ---
Author Organization [facility] Address [address] [place] [address] Phone Care Team Providers Care Door Repairman Name Role Phone Donald Bowens MD Primary Care Provider [phone] ArCornelio ayala MD Unavailable [phone] Encounter Details Date Type Department Care Team (Late st Contact Info) Description 04/07/2020 Orders Only [facility] [address] [place] [id number] Scanning, Provider Social History Tobacco Use Types Packs/Day Years Used Date Smoking Tobacco: Never Smokeless Tobacco: Never Alcohol Use Standard Drinks/Week Comments Yes 2 (1 standard drink = 0.6 oz pur e alcohol) Occasional Comments No Sex and Gender Information Value Date Recorded Sex Assigned at Not on file Legal Sex Female 5:13 PM MANUFACTURING QUALITY TECHNICIAN Gender Identity Not on file Sexual Orientation Not on file Occupation Industry Job Start Date Job End Date Not on file Not on file Not on file Not on file documented as of this encounter Plan of Treatment Not on file documented as of this encounter Procedures Procedure Name Priority Date/Time Associated Diagnosis Comments CARDIOLOGY DOCUMENT SCAN 04/07/2020 documented in this encounter Results * SCAN - CARDIOLOGY (04/07/2020) Anatomical Region Laterality Modality Other us Provider Scanning CV CARDIAC SERVICES PROCEDURES Final Result documented in this encounter Visit Diagnoses Not on filedocumented in this encounter Additional Health Concerns Infection Onset Date Last Indicated Resolved Time COVID19 04/18/2021 04/18/2021 05/03/2021 3:05 AM CDT COVID: Recovered Comment:Added based on recent COVID infection. 05/03/2021 05/20/2021 08/31/2021 3:[address] COVID: Suspected 09/25/2022 09/25/2022 09/25/2022 2:00 PM MANUFACTURING QUALITY TECHNICIAN COVID: Suspected 09/29/2022 09/29/2022 09/29/2022 12:02 PM MANUFACTURING QUALITY TECHNICIAN COVID: Suspected 09/04/2024 09/04/2024 09/04/2024 3:15 PM MANUFACTURING QUALITY TECHNICIAN documented as of this encounter Care Teams Door Repairman Relationship Specialty Start Date End Date Donald Bowens MD PCP - General 11/03/16 Cornelio Loera MD Consulting Physician Urology 04/19/21 documented as of this encounter
--- OUTSIDE RECORDS SUMMARY | 2025-03-10 17:40 | XMS_ITS | Encounter Summary ---
Author Organization [facility] Address [address] [place] [address] Phone Care Team Providers Care Press Operator Automatic Name Role Phone Salty Lin MD Unavailable [phone] Donald Bowens MD Primary Care Provider [phone] Reason for Referral * Radiology Services (Routine) - Closed Specialty Diagnoses / Procedures Referred By Contac t Referred To Contact Radiology Diagnoses Pre-op testing Arthritis of both feet Procedures EKG 12 LEAD Issac Campos MD [address] [place] [address] Phone: tel: fax: Referral ID Status Reason Start Date Expiration Date Visits Re quested Visits Authorized [id number] Closed 01/21/2021 1 1 Encounter Details Date Type Department Care Team (Late st Contact Info) Description 01/21/2021 Transcribe [facility] [address] [place] [id number] Issac Campos MD [address] [place] [address] Pre-op testing (Primary Dx); Arthritis of both feet Social History Tobacco Use Types Packs/Day Years Used Date Smoking Tobacco: Never Smokeless Tobacco: Never Alcohol Use Standard Drinks/Week Comments Yes 0 (1 standard drink = 0.6 oz pur e alcohol) occasional Comments No Sex and Gender Information Value Date Recorded Sex Assigned at Not on file Legal Sex Female 10:57 PM CDT Gender Identity Not on file Sexual Orientation Not on file COVID-19 Exposure Response Date Recorded In the last month, have you been in contact with someone who was confirmed or suspected to have Coronavirus / COVID-19? No / Unsure 01/23/2021 9:56 AM CDT documented as of this encounter Plan of Treatment Not on file documented as of this encounter Results * EKG 12 LEAD (01/23/2021 10:18 AM CDT) Ventricular Rate BPM EXTERNAL EKG Atrial Rate BPM EXTERNAL EKG P-R Interval 164 ms EXTERNAL EKG QRS Duration 76 ms EXTERNAL EKG Q-T Duration 352 ms EXTERNAL EKG QTC CALCULATION 406 ms EXTERNAL EKG P [place] 58 degrees EXTERNAL EKG R [place] 37 degrees EXTERNAL EKG T [place] 59 degrees EXTERNAL EKG 01/23/2021 10:1 8 AM CDT Impressions EXTERNAL EKG - 01/24/2021 8:43 AM CDT Sinus rhythm Comparison Summary: No serial comparison made Summary: Borderline ECG Confirmed by Arlet Calabrese [id number] on 01/24/2021 8:43:53 AM Narrative Procedure Note Otilia Nice MD - 01/24/2021 IMPRESSION: Sinus rhythm Comparison Summary: No serial comparison made Summary: Borderline ECG Confirmed by Arlet Calabrese [id number] on 01/24/2021 8:43:53 AM us Issac Campos MD IMG ECG ORDERABLES Final Resu lt EXTERNAL EKG * (ABNORMAL) BASIC METABOLIC PANEL W/ CALCIUM TOTAL (01/23/2021 10:11 AM CDT) SODIUM 138 136 - 144 mmol/L 01/23/2021 11:46 AM CDT [facility] POTASSIUM 3.8 3.5 - 5.1 mmol/L 01/23/2021 11:[address] [facility] CHLORIDE 102 100 - 110 mmol/L 01/23/2021 11:[address] [facility] CO2, VENOUS 29 22 - 32 mmol/L 01/23/2021 11:[address] [facility] ANION GAP 10.8 8.0 - 20.0 mmol/L 01/23/2021 11:[address] [facility] GLUCOSE 101(H) 70 - 99 mg/dL 01/23/2021 11:[address] [facility] BUN 13 8 - 23 mg/dL 01/23/2021 11:[address] [facility] CREATININE, BLOOD 0.65 0.60 - 1.10 mg/dL 01/23/2021 11:[address] [facility] BUN/CREATININE RATIO 20 12 - 20 ratio 01/23/2021 11:[address] [facility] CALCIUM 9.8 8.9 - 10.3 mg/dL 01/23/2021 11:[address] [facility] GFR, EST. NONAFRICAN >60 >=60 01/23/2021 11:[address] [facility] GFR, EST. >60 >=60 01/23/2021 11:[address] [facility] Comment: Creatinine Clearance is the preferred criteria for selecting drug dose adjustments in renally impaired patients. The GFR is provided as additional pertinent clinical information. GFR is reported in mL/min/1.73 sq m. IS THE PATIENT REQUIRED TO BE FASTING? No 01/23/2021 11:[address] [facility] Blood Venipuncture / Unknown 01/23/2021 10:11 AM CDT 01/23/2021 11:24 AM CDT us Issac Campos MD CHEMISTRY ORDERABLES Final Re sult [facility] [address] [place] [address] * HEMOGLOBIN & HEMATOCRIT (H&H) (01/23/2021 10:11 AM CDT) HEMOGLOBIN (HGB) 12.4 12.0 - 15.8 g/dL 01/23/2021 11:29 AM CDT [facility] HEMATOCRIT (HCT) 39.5 36.0 - 47.0 % 01/23/2021 11:29 AM CDT [facility] Blood Venipuncture / Unknown 01/23/2021 10:11 AM CDT 01/23/2021 11:24 AM CDT us Issac Campos MD HEMATOLOGY ORDERABLES Final R esult [facility] [address] [place] [address] documented in this encounter Visit Diagnoses Diagnosis Pre-op testing- Primary Preoperative examination, unspecified Arthritis of both feet Pre-op testing Preoperative examination, unspecified Arthritis of both feet documented in this encounter Care Teams Press Operator Automatic Relationship Specialty Start Date End Date Donald Bowens MD [address] [place] [address] PCP - General Internal Medicine 05/08/17 Salty Lin MD General Surgery 05/02/17 documented as of this encounter
[2025-03-10 17:42] VITALS: BP 117/75; PULSE 86; RESP 20; TEMP 36.8; O2SAT 98
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
== END 2025-03-10 19:25 | disposition home or self-care (01) ==
PROVIDERS: Emergency Provider Nurse Practitioner Family; PCP Internal Medicine
DX: S93.601A Unspecified sprain of right foot, initial encounter (principal); X58.XXXA Exposure to other specified factors, initial encounter; I10 Essential (primary) hypertension; J45.909 Unspecified asthma, uncomplicated; E66.01 Morbid (severe) obesity due to excess calories; Z68.41 Body mass index [BMI] 40.0-44.9, adult
CPT/HCPCS: 73630; 99213; G0463